=== PATIENT | female | born 1945 | race Caucasian/White ===

== ENCOUNTER → 2021-03-13 14:53 | Outpatient (CLI) | payer MEDICARE, SELFPAY ==
--- NOTE | 2021-03-13 14:57 | DI.ECHO.S_ITS ---
[facility] +---------+ : : [address] : [place] : : : : [id number] : : : : Phone: [phone]+ Echocardiogram Report + + :Name: LUCIANA MOYA Study Date: 03/13/2021 Height: 64 in : :[facility] ReadingLocation: Weight: 200 lb : : Gender: Female BSA: 2.0 m2 : :: 1945 Age: 76 yrs BP: 131/67 mmHg: :Reason For Study: HEART MURMUR : :Ordering Physician: DON, : :MIREYA Performed By: Isaura Shin : :Referring: MIREYA OCHOA : + + Interpretation Summary The left ventricle is normal in size and wall thickness. Left ventricular systolic function appears normal without focal wall motion abnormalities. The ejection fraction is estimated to be 55-60%. Diastolic parameters suggest a relaxation abnormality of the left ventricle, consistent with probable normal filling pressures. The right ventricle is normal in size, thickness and function. Pulmonary artery pressures cannot be estimated because of the lack of a measurable TR jet velocity but the IVC suggests a CVP of around 3 mmHg. The left atrium is mildly dilated. The right atrium is normal in size. There is no significant valvular heart disease. The ascending aorta is at the upper limits of normal in size. Procedure: A two-dimensional transthoracic echocardiogram with color flow and Doppler was performed. The study quality was technically adequate. There is no prior echocardiogram noted for this patient. The patient was in sinus rhythm with heart rates between 69-76 bpm during the exam. Left Ventricle: The left ventricle is normal in size and wall thickness. Left ventricular systolic function appears normal without focal wall motion abnormalities. The ejection fraction is estimated to be 55-60%. Diastolic parameters suggest a relaxation abnormality of the left ventricle, consistent with probable normal filling pressures. Right Ventricle: The right ventricle is normal in size, thickness and function. Atria: The left atrium is mildly dilated. The right atrium is normal in size. There is no Doppler evidence for an interatrial shunt. Mitral Valve: The mitral valve is normal in structure and function. There is no mitral regurgitation noted. Aortic Valve: The aortic valve opens well. There is no aortic valve stenosis. No aortic regurgitation is present. Tricuspid Valve: The tricuspid valve is normal in structure and function. There is trace tricuspid regurgitation. Pulmonary artery pressures cannot be estimated because of the lack of a measurable TR jet velocity but the IVC suggests a CVP of around 3 mmHg. Pulmonic Valve: The pulmonic valve is not well visualized. There is no pulmonic valvular regurgitation. There is no significant valvular heart disease. Great Vessels: The aortic root is normal size. The ascending aorta is at the upper limits of normal in size. The IVC is of normal diameter and collapses greater than 50% with a sniff. This suggests a low right atrial pressure of 3 mm Hg. Pericardium/ Pleura There is no pericardial effusion. There is no pleural effusion. MMode/2D Measurements & Calculations LVIDd: 4.8 cm LVOT diam: 2.2 cm LVIDs: 3.1 cm Ao root diam: 3.2 cm FS: 35.1 % asc Aorta Diam: 3.4 cm EPSS: 1.0 cm Ao Arch Diam (Prox Trans): 2.7 cm IVSd: 1.0 cm LVPWd: 0.70 cm LV lopez. diameter/BSA (cm/m^2): 2.5 LV sys. diameter/BSA (cm/m^2): 1.6 LA A2 area: 22.4 cm2 RA long axis: 4.6 cm LA A4 area: 17.8 cm2 RA area: 13.1 cm2 LA length (vol): 4.9 cm RA vol: 31.4 ml LA vol: 68.8 ml RA : 16.1 ml/m2 LA vol index: 35.2 ml/m2 IVC diam: 1.6 cm RVD1 (basal): 2.7 cm TAPSE: 1.6 cm Doppler Measurements & Calculations Ao V2 max: 129.4 cm/sec LVOT Max Krunal: 103.5 cm/sec Ao V2 mean: 78.6 cm/sec LV V1 max P.3 mmHg Ao max P.7 mmHg LV V1 VTI: 21.5 cm Ao mean P.0 mmHg REEMA(I,D): 3.1 cm2 Ao V2 VTI: 26.0 cm REEMA(V,D): 3.0 cm2 sev ratio: 0.83 REEMA indexed to BSA (cm^2/m^2): 1.6 MV E max krunal: 53.1 cm/sec PA pr(Accel): 46.5 mmHg MV A max krunal: 80.4 cm/sec MV E/A: 0.66 Med Peak E' Krunal: 3.9 cm/sec E/E' med: 13.5 Lat Peak E' Krunal: 5.9 cm/sec E/E' lat: 9.0 E/e' average: 11.2 MV dec time: 0.29 sec SV(OT): 80.8 ml Reading Physician:06:45 PM
== END ==
PROVIDERS: Referring Provider Family Medicine; Visit Provider Family Medicine
DX: R01.1 Cardiac murmur, unspecified (principal)
CPT/HCPCS: 93306

== ENCOUNTER 2021-05-11 13:31 | Inpatient (IN) | payer MEDICARE, SELFPAY ==
[2021-05-11] VITALS (16 sets, daily range): BP systolic 131–184; BP diastolic 60–98; PULSE 74–94; RESP 15–20; TEMP 36.4–37.2; O2SAT 93–98; BMI 32.5
[2021-05-11 14:17] LABS: Add Manual Diff / Slide Review NO; Basophils Absolute Auto 100 /uL (0-100); Basophils Percent Auto 0.4 % (0-2); Eosinophils Absolute Auto 100 /uL (0-450); Eosinophils Percent Auto 0.7 % (2-4); Hematocrit 46.3 % (36-46); Hemoglobin 15.2 g/dL (12.0-16.0); Lymphocytes Absolute Auto 1300 /uL (1100-4500); Lymphocytes Percent Auto 10.4 % (25-40); Mean Corpuscular HGB Conc 32.9 % (30-36); Mean Corpuscular Hemoglobin 30.7 PG (26-34); Mean Corpuscular Volume 93.4 fL (80-100); Monocytes Absolute Auto 800 /uL (0-900); Monocytes Percent Auto 6.6 % (3-14); Neutrophils Absolute Auto 10400 /uL (1500-7000); Neutrophils Percent Auto 81.9 % (50-75); Platelet Count 316 X10^3/uL (150-400); Red Blood Cell Count 4.96 X10^6/uL (4.0-5.2); Red Cell Distribution Width 14.1 % (11.6-14.8); White Blood Cell Count 12.8 X10^3/uL (4.5-11.0)
[2021-05-11] MEDS: ONDANSETRON 4 MG/2 ML INJ IV ×2 (14:17→21:37)
[2021-05-11] MEDS: MORPHINE 4 MG/ML INJ IV (14:19)
[2021-05-11] MEDS: SODIUM CHLORIDE 0.9% 1,000 ML 1000 ML IV (14:19)
[2021-05-11 14:31] LABS: Alanine Aminotransferase 21 IU/L (<35); Albumin 4.5 g/dL (3.5-5.0); Albumin Globulin Ratio 1.6 (1.0-2.8); Alkaline Phosphatase 81 U/L (38-126); Aspartate Aminotransferase 28 IU/L (14-36); BUN Creatinine Ratio 16.7 (6-22); Bilirubin Total 0.8 mg/dL (0.2-1.3); Blood Urea Nitrogen 14 mg/dL (7-17); Calcium 10.2 mg/dL (8.4-10.2); Carbon Dioxide 26 mmol/L (22-32); Chloride 105 mmol/L (98-107); Estimated Glomerular Filt Rate > 60.0 mL/min (>60); Globulin 2.8 g/dL (1.7-4.1); Glucose 143 mg/dL (80-110); HEMOLYSIS < 15 (0-50); Lipase 98 U/L (23-300); Potassium 4.3 mmol/L (3.4-5.1); Sodium 140 mmol/L (137-145); Total Protein 7.3 g/dL (6.3-8.2)
--- NOTE | 2021-05-11 14:31 | ED_ITS ---
HPI - General Adult General Chief complaint: Abdominal Pain Stated complaint: Vomiting Non Stop, Poss Pancreatitis Time Seen by Provider: 05/11/21 14:12 Source: patient Mode of arrival: Family Vehicle Limitations: no limitations History of Present Illness HPI narrative: Patient is a 76-year-old female who is here for evaluation of multiple episodes of vomiting and abdominal discomfort. She has had history of pancreatitis in the past and states this feels similar to that episode. She did have a bowel movement yesterday. Everything she has tried to eat today she has vomited. No fevers. Also feels abdominal distention. Has had a hysterectomy otherwise no abdominal surgeries. Was also recently diagnosed with the urinary tract infection and has only taken a couple doses of antibiotics for this and is seem to be after the antibiotics with her symptoms started. Related Data Home Medications Medication Instructions Recorded Confirmed amlodipine 5 mg tablet (Norvasc) 5 mg PO QDAY #0 06/29/11 diclofenac sodium 50 mg 50 mg PO AMCC #0 06/29/11 tablet,delayed release metoprolol tartrate 25 mg tablet 25 mg PO BID #0 06/29/11 Allergies Allergy/AdvReac Type Severity Reaction Status Date / Time Penicillins Allergy Severe Rash Verified 05/11/21 13:44 Sulfa (Sulfonamide Allergy Severe Rash Verified 05/11/21 13:44 Antibiotics) Review of Systems Constitutional Constitutional: Denies fever(s) Cardiovascular Cardiovascular: Denies chest pain and Denies dyspnea Respiratory Respiratory: Denies dyspnea Gastrointestinal Gastrointestinal: Reports as per HPI, Reports bloating, Reports cramping, Reports nausea and Reports vomiting Genitourinary Genitourinary: Reports system reviewed and no additional complaints, except as documented Musculoskeletal Musculoskeletal: Reports system reviewed and no additional complaints, except as documented Integumentary/Breasts Skin/Breast: Reports system reviewed and no additional complaints, except as documented Neurologic Neurologic: Reports system reviewed and no additional complaints, except as documented Psychiatric Psychiatric: Reports system reviewed and no additional complaints, except as documented Hematologic/Lymphatic On Anticoagulants: No Allergic/Immunologic Allergic/Immunologic: Reports system reviewed and no additional complaints, except as documented Patient History Medical History Pancreatitis Surgical History History of hysterectomy Social History (Reviewed 07/16/21 @ 19:04 by RIKY Amaya Smoking Status: Never smoker Smoking Status: Never smoker alcohol intake frequency: holidays/special occasions only Substance Use Type: does not use Exam Initial Vital Signs Initial Vital Signs: Vital Signs Temperature 97.5 F L 05/11/21 13:37 Pulse Rate 94 H 05/11/21 13:37 Respiratory Rate 18 05/11/21 13:37 Blood Pressure 131/96 H 05/11/21 13:37 Pulse Oximetry 96 05/11/21 13:37 Const General: cooperative, healthy appearing and comfortable HENNC Head: normal to inspection Eyes General: appearance normal, both eyes and all related structures Resp Effort & Inspection: normal respiratory effort Auscultation: clear to auscultation bilaterally Cardio Rate: regular rate Rhythm: regular rhythm GI Inspection: normal to inspection Palpation: firm and tender Percussion: normal to percussion Skin General: no rashes or lesions noted Neuro General: patient alert, patient awake, patient oriented x3 and moves all extremities Extrem General: normal to inspection and capillary refill normal Psych Appearance: grossly normal and well kempt Course Orders Ordered: ED Orders 05/11/21 13:45 EKG-12 Lead Stat 05/11/21 14:14 Complete Blood Count AUTO DIFF Stat Comprehensive Metabolic Panel Stat Lipase Stat 05/11/21 15:03 CT abdomen pelvis w con Stat 05/11/21 16:00 COVID19 - ADMIT (SOIL CONSERVATION AIDE swab/PCR) Stat 05/11/21 16:09 Consult to General Surgery Stat 05/11/21 17:05 Consult to Physician Urgent Bupropion HCl (Bupropion Xl 150 Mg Tab) 300 mg PO DAILY KATIE Doxepin HCl (Doxepin 10 Mg Capsule) 20 mg PO BEDTIME KATIE Gabapentin (Gabapentin 300 Mg Capsule) 300 mg PO TID KAITE Sodium Chloride (Normal Saline 0.9%) 1,000 mls @ 125 mls/hr IV CONT KATIE Last Admin: 05/11/21 16:10 Dose: 125 mls/hr Documented by: ANUSHKAYERS Sodium Chloride (Normal Saline 0.9%) 1,000 mls @ 125 mls/hr IV CONT KATIE Last Admin: 05/11/21 17:57 Dose: Not Given Documented by: KBRYERS Sodium Chloride (Normal Saline 0.45%) 1,000 mls @ 125 mls/hr IV CONT KATIE Morphine Sulfate (Morphine 2 Mg/Ml Inj) 4 mg IV Q4HR PRN PRN Reason: pain Morphine Sulfate (Morphine 2 Mg/Ml Inj) 2 mg IV Q4HR PRN PRN Reason: Pain, Moderate (4-6) Naloxone HCl (Naloxone 0.4 Mg/Ml Vial) 0.2 mg IV Q2MIN PRN PRN Reason: Opiate Reversal Ondansetron HCl (Ondansetron 4 Mg/2 Ml Inj) 4 mg IV Q4HR PRN PRN Reason: Nausea And Vomiting Pantoprazole Sodium (Pantoprazole 40 Mg Vial) 40 mg IV DAILY KATIE Discontinued Medications Sodium Chloride (Normal Saline 0.9%) 1,000 mls @ 1,000 mls/hr IV BOLUS ONE Stop: 05/11/21 15:17 Last Infusion: 05/11/21 15:27 Dose: 0 mls/hr Documented by: Admin: 05/11/21 14:19 Dose: 1,000 mls/hr Documented by: KATRIN Morphine Sulfate (Morphine 4 Mg/Ml Inj) 4 mg IV NOW ONE Stop: 05/11/21 14:13 Last Admin: 05/11/21 14:19 Dose: 4 mg Documented by: KATRIN Ondansetron HCl (Ondansetron 4 Mg/2 Ml Inj) 4 mg IV NOW ONE Stop: 05/11/21 13:50 Last Admin: 05/11/21 14:17 Dose: 4 mg Documented by: KATRIN Vital Signs Vital signs: Vital Signs - 8 hr 05/11/21 13:37 05/11/21 14:40 05/11/21 14:49 Temperature 97.5 F L Pulse Rate 94 H 82 79 Respiratory Rate 18 19 Blood Pressure 131/96 H 148/69 H Pulse Oximetry 96 96 94 05/11/21 15:00 05/11/21 15:30 05/11/21 16:00 Temperature Pulse Rate 74 81 81 Respiratory Rate 17 17 18 Blood Pressure 139/65 174/73 H Pulse Oximetry 98 97 96 05/11/21 16:14 05/11/21 16:30 05/11/21 16:38 Temperature Pulse Rate 83 88 92 H Respiratory Rate 17 17 Blood Pressure 184/74 H 165/79 H Pulse Oximetry 93 95 98 05/11/21 17:00 05/11/21 17:30 05/11/21 18:00 Temperature Pulse Rate 85 86 83 Respiratory Rate 15 20 17 Blood Pressure 171/81 H 172/78 H 152/81 H Pulse Oximetry 96 96 98 Medical Decision Making Lab Data Lab results reviewed: Yes I reviewed the patient's lab results. Result diagrams: 05/11/21 14:14 05/11/21 14:14 Labs: Lab Results 05/11/21 05/11/21 05/11/21 Range/Units 14:14 14:14 16:00 WBC 12.8 H (4.5-11.0) X10^3/uL RBC 4.96 (4.0-5.2) X10^6/uL Hgb 15.2 (12.0-16.0) g/dL Hct 46.3 H (36-46) % MCV 93.4 (80-100) fL MCH 30.7 (26-34) PG MCHC 32.9 (30-36) % RDW 14.1 (11.6-14.8) % Plt Count 316 (150-400) X10^3/uL Neut % (Auto) 81.9 H (50-75) % Lymph % (Auto) 10.4 L (25-40) % [place] % (Auto) 6.6 (3-14) % Eos % (Auto) 0.7 L (2-4) % Baso % (Auto) 0.4 (0-2) % Neut # (Auto) 56867 H (6519-7551) /uL Lymph # (Auto) 1300 (4941-8872) /uL [place] # (Auto) 800 (0-900) /uL Eos # (Auto) 100 (0-450) /uL Baso # (Auto) 100 (0-100) /uL Sodium 140 (137-145) mmol/L Potassium 4.3 (3.4-5.1) mmol/L Chloride 105 (98-107) mmol/L Carbon Dioxide 26 (22-32) mmol/L BUN 14 (7-17) mg/dL Creatinine 0.84 (0.52-1.04) mg/dL Estimated GFR > 60.0 (>60) mL/min BUN/Creatinine Ratio 16.7 (6-22) Glucose 143 H (80-110) mg/dL Calcium 10.2 (8.4-10.2) mg/dL Total Bilirubin 0.8 (0.2-1.3) mg/dL AST 28 (14-36) IU/L ALT 21 (<35) IU/L Alkaline Phosphatase 81 (38-126) U/L Total Protein 7.3 (6.3-8.2) g/dL Albumin 4.5 (3.5-5.0) g/dL Globulin 2.8 (1.7-4.1) g/dL Albumin/Globulin Ratio 1.6 (1.0-2.8) Lipase 98 (23-300) U/L SARS-CoV-2 (PCR) Negative (Negative) Urine Dip Bedside Urine Glucose Negative Bedside Urine Bilirubin - Negative Bedside Urine Ketone - Negative Urine Specific [place] 1.005 Bedside Urine Occult Blood - Negative Bedside Urine pH 6 Bedside Urine Protein +/- 15 Bedside Urine Urobilinogen - Negative Bedside Urine Nitrite - Negative Bedside Urine Leukocytes - Negative Esterase Point of care testing: Urine Dip Bedside Urine Glucose Negative Bedside Urine Bilirubin - Negative Bedside Urine Ketone - Negative Urine Specific [place] 1.005 Bedside Urine Occult Blood - Negative Bedside Urine pH 6 Bedside Urine Protein +/- 15 Bedside Urine Urobilinogen - Negative Bedside Urine Nitrite - Negative Bedside Urine Leukocytes - Negative Esterase Imaging Data CT scan - abdomen/pelvis: Radiologist's Impression: [address] [id number] Scan ReportSigned Patient: Trudy Snyder LMR#: [id number]: 6Acct:[id number]/Sex: 76 / FDate of Service: 05/11/21Loc: EDAccession Number: [id number] Procedure: CT abdomen pelvis w con Ordering Provider: Fran Lobo D.O. PROCEDURE: CT ABDOMEN PELVIS W CON INDICATIONS: Generalized abdominal pain TECHNIQUE: After the administration of intravenous contrast, axial sections acquired from the lung bases to the pubic symphysis. Coronal and sagittal reformats were performed. For radiation dose reduction, the following was used: automated exposure control, adjustment of mA and/or kV according to patient size. COMPARISON: None. FINDINGS: Image quality: Excellent. Lung bases: Unremarkable. Heart: No significant findings. ABDOMEN: Liver: The liver is enlarged with steatosis. Gallbladder: Unremarkable. Biliary ducts: Unremarkable. Pancreas: Unremarkable. Spleen: There is a calcified low-attenuation mass within the superior spleen measuring approximately 3.4 x 3.3 cm. Adrenal Glands: Unremarkable. Kidneys and Ureters: Right simple renal cyst is present measuring 15 mm. Stomach and Bowel: There are moderately dilated fluid-filled loops of small bowel. Transition point is not clearly identified but suspected to be in the right lower quadrant. Most prominent loop of bowel is dilated measuring 4.2 cm in AP dimension. Peritoneum: No abnormal intraperitoneal fluid. No free air. Ventral Wall: No hernias. Abdominal Nodes: No retroperitoneal or mesenteric adenopathy by size criteria. Vessels: Aorta and inferior vena cava are normal in size. PELVIS: Pelvic Organs: Unremarkable. Bladder: Unremarkable. Pelvic Nodes: No enlarged lymph nodes. Miscellaneous: No hernias are seen. Bilateral breast implants are noted including calcified implant on the left. Bones: Lower lumbar fusion is present. Lucencies are present within the posterior right iliac bone having an appearance of prior surgical intervention. Clinical correlation is recommended. IMPRESSION: 1. Dilated fluid-filled loops of small bowel as described above most consistent with partial small bowel obstruction. 2. Calcified splenic mass as above. This could represent hemangioma or lesion of prior infection or inflammation. It is overall nonspecific and no priors are av ailable for comparison. Dictated by: Sandra Lee M.D. on 05/11/2021 at 15:37 Approved by: Sandra Lee M.D. on 05/11/2021 at 15:47 MDM Narrative Medical decision making narrative: Patient does have diffuse abdominal ten derness with distension. Lipase unremarkable. LFTs unremarkable. CT scan shows findings consistent with partial small bowel obstruction. I did discuss the case with Dr. Hurst on-call for General surgery who agrees to see the patient after she is admitted asked that she be admitted by her primary provider. I then discussed the case with Dr. Rocha who is her primary doctor who will admit for further evaluation treatment. Her pain and nausea does seem to be controlled with medications we will hold on an NG tube for now. I did discuss the findings of the CT scan with the patient and family at bedside. They expressed understanding agreement this plan. Discharge Plan Departure Patient Disposition: Admitted As Inpatient Clinical Impression: Small bowel obstruction Admit Date/Time: 05/11/21 18:00 Admit Provider: Batsheva Rocha
--- NOTE | 2021-05-11 15:03 | DI.CT.S_ITS ---
PROCEDURE: CT ABDOMEN PELVIS W CON INDICATIONS: Generalized abdominal pain TECHNIQUE: After the administration of intravenous contrast, axial sections acquired from the lung bases to the pubic symphysis. Coronal and sagittal reformats were performed. For radiation dose reduction, the following was used: automated exposure control, adjustment of mA and/or kV according to patient size. COMPARISON: None. FINDINGS: Image quality: Excellent. Lung bases: Unremarkable. Heart: No significant findings. ABDOMEN: Liver: The liver is enlarged with steatosis. Gallbladder: Unremarkable. Biliary ducts: Unremarkable. Pancreas: Unremarkable. Spleen: There is a calcified low-attenuation mass within the superior spleen measuring approximately 3.4 x 3.3 cm. Adrenal Glands: Unremarkable. Kidneys and Ureters: Right simple renal cyst is present measuring 15 mm. Stomach and Bowel: There are moderately dilated fluid-filled loops of small bowel. Transition point is not clearly identified but suspected to be in the right lower quadrant. Most prominent loop of bowel is dilated measuring 4.2 cm in AP dimension. Peritoneum: No abnormal intraperitoneal fluid. No free air. Ventral Wall: No hernias. Abdominal Nodes: No retroperitoneal or mesenteric adenopathy by size criteria. Vessels: Aorta and inferior vena cava are normal in size. PELVIS: Pelvic Organs: Unremarkable. Bladder: Unremarkable. Pelvic Nodes: No enlarged lymph nodes. Miscellaneous: No hernias are seen. Bilateral breast implants are noted including calcified implant on the left. Bones: Lower lumbar fusion is present. Lucencies are present within the posterior right iliac bone having an appearance of prior surgical intervention. Clinical correlation is recommended. IMPRESSION: 1. Dilated fluid-filled loops of small bowel as described above most consistent with partial small bowel obstruction. 2. Calcified splenic mass as above. This could represent hemangioma or lesion of prior infection or inflammation. It is overall nonspecific and no priors are available for comparison. Dictated by: Sandra Lee M.D. on 05/11/2021 at 15:37 Approved by: Sandra Lee M.D. on 05/11/2021 at 15:47
[2021-05-11] MEDS: SODIUM CHLORIDE 0.9% 1,000 ML 125 ML IV (16:10)
[2021-05-11 17:21] LABS: COVID19 - ADMIT (NP swab/PCR) Negative (Negative)
--- NOTE | 2021-05-11 18:41 | P.HP_ITS ---
History of Present Illness History of Present Illness Date Patient Seen: 05/11/21 Time Patient Seen: 18:42 Date of Onset of Symptoms: 05/10/21 Chief complaint: Vomiting Non Stop, Poss Pancreatitis Narrative: This pleasant 75-year-old female who is a relatively new patient to me presents to the emergency department with complaints of severe abdominal pain and vomiting. Her symptoms started a couple days ago when she developed increasing nausea and abdominal pain. She was seen in the clinic yesterday and concern for possible urinary tract infection. She was started on Macrobid she took 2 doses. She then developed vomiting today she was not sure if it was related to the antibiotics or the underlying process so we directed her to go to the ER for evaluation. In the ER was discovered that she had a bowel obstruction. She was admitted for the same. Patient last ate yesterday. Her last bowel movement was yesterday in her bowels have been normal. She has not had any constipation or diarrhea. However the patient has had intermittent nausea over the last 6 weeks and is in fact lost 10 lb of weight. She has not been trying to lose weight but she has not had as much of appetite. It feels very similar to when she had pancreatiti in the past. The pancreatitis was related to defer medication she was on Mon included the lisinopril. She denies any other urinary symptoms or blood in her urine or blood in her stool or early satiety or significant reflux Past medical history: 1. Hypertension 2. Depression 3. Hyperlipidemia 4. Hypertension 5. GERD 6. Degenerative joint disease of her left knee 7. Decreased hearing bilaterally 8. History of a heart murmur but no evidence of valvular abnormality on recent echo 9. Cervical spinal stenosis 10. History of subdural hematoma 11. History of pancreatitis as above 12. Family history of diabetes Medications Telmisartan 80 mg daily Amlodipine 10 mg daily Zofran on as needed Potassium chloride ER 20 mEq a day Furosemide 20 mg daily Gabapentin 300 mg 3 times a day for chronic pain And omeprazole 40 mg daily Bupropion ER XL 300 mg daily Doxepin 20 mg at bedtime Dicyclomine 10 mg as needed Fluticasone 2 squirts each nostril once daily Allergies: Sulfa Penicillin Lisinopril caused pancreatitis Most [place] cause sweating Past surgical history 2006 she had a subdural hematoma status post craniotomy Lumbar fusion Lumbar fusion in 2004 Right total knee replacement Family history: Father had diabetes was a smoker and of renal cancer Mother had hypertension depression substance abuse of a bowel blockage at age 74 and had a abdominal aortic aneurysm Patient has a brother with Diabetes and memory issues Sister was killed at age 20 I gunshot Daughter with Rett syndrome Patient History Family & Social History Social History: Patient is a . She recently moved from [facility] where she lives to [place] to be closer to her son and his family. Safety & Behavioral: Feels Safe in Current Yes Environment Been Physically Hurt or No Threatened By a Person Tobacco & Substance use: Smoking Status Never smoker alcohol intake frequency holiday/special occasion Substance Use Type does not use Meds Home Medications and Allergies Home Medications Medication Instructions Recorded Confirmed Type amlodipine 5 mg tablet (Norvasc) 5 mg PO QDAY #0 06/29/11 History diclofenac sodium 50 mg 50 mg PO AMCC #0 06/29/11 History tablet,delayed release metoprolol tartrate 25 mg tablet 25 mg PO BID #0 06/29/11 History Allergies Allergy/AdvReac Type Severity Reaction Status Date / Time Penicillins Allergy Severe Rash Verified 05/11/21 13:44 Sulfa (Sulfonamide Allergy Severe Rash Verified 05/11/21 13:44 Antibiotics) Review of Systems Review of Systems Narrative: Bowel movements have been normal. Her last bowel movement was yesterday. There has been no blood in her stool. No mucus. No diarrhea. Patient does have a history of irritable bowel syndrome but she is not a current symptoms. No chest pain or shortness of breath She has had nausea since her last visit with me in the end of February intermittently and has lost 10 lb without trying just because she has not had much of an appetite. She has not had vomiting No fever or chills No change in musculoskeletal pain. No change in medications Exam Vital Signs (past 8 hours): - 05/11/21 13:37 05/11/21 14:40 05/11/21 14:49 Temperature 97.5 F L Pulse Rate 94 H 82 79 Respiratory Rate 18 19 Blood Pressure 131/96 H 148/69 H Pulse Oximetry 96 96 94 05/11/21 15:00 05/11/21 15:30 05/11/21 16:00 Temperature Pulse Rate 74 81 81 Respiratory Rate 17 17 18 Blood Pressure 139/65 174/73 H Pulse Oximetry 98 97 96 05/11/21 16:14 05/11/21 16:30 05/11/21 16:38 Temperature Pulse Rate 83 88 92 H Respiratory Rate 17 17 Blood Pressure 184/74 H 165/79 H Pulse Oximetry 93 95 98 05/11/21 17:00 05/11/21 17:30 05/11/21 18:00 Temperature Pulse Rate 85 86 83 Respiratory Rate 15 20 17 Blood Pressure 171/81 H 172/78 H 152/81 H Pulse Oximetry 96 96 98 Oxygen Delivery Method Room Air Narrative Exam Narrative: Patient is alert oriented x3, well groomed, appears younger than her stated age, in no apparent distress HEENT is unremarkable. No mucosal lesions the mucous membranes are moist and pink Neck is supple without adenopathy or thyromegaly Chest: Clear to auscultation without wheezes rhonchi or crackles Cor: Regular rate and rhythm without murmur Abdomen: Patient has a well-healed hysterectomy scar. She has positive bowel sounds but they are diminished. She appears mildly distended. She is diffusely tender left upper quadrant left lower quadrant and right lower quadrant. There is no guarding. There is no rebound. There is no discernible hepatosplenomegaly Extremities: No edema, pulses intact Neurologic exam is nonfocal Objective Labs Result Diagrams: 05/11/21 14:14 05/11/21 14:14 Labs: Laboratory Results - last 24 hr 05/11/21 05/11/21 05/11/21 14:14 14:14 16:00 WBC 12.8 H RBC 4.96 Hgb 15.2 Hct 46.3 H MCV 93.4 MCH 30.7 MCHC 32.9 RDW 14.1 Plt Count 316 Neut % (Auto) 81.9 H Lymph % (Auto) 10.4 L [place] % (Auto) 6.6 Eos % (Auto) 0.7 L Baso % (Auto) 0.4 Neut # (Auto) 26026 H Lymph # (Auto) 1300 [place] # (Auto) 800 Eos # (Auto) 100 Baso # (Auto) 100 Sodium 140 Potassium 4.3 Chloride 105 Carbon Dioxide 26 BUN 14 Creatinine 0.84 Estimated GFR > 60.0 BUN/Creatinine Ratio 16.7 Glucose 143 H Calcium 10.2 Total Bilirubin 0.8 AST 28 ALT 21 Alkaline Phosphatase 81 Total Protein 7.3 Albumin 4.5 Globulin 2.8 Albumin/Globulin Ratio 1.6 Lipase 98 SARS-CoV-2 (PCR) Negative Assessment & Plan Assessment & Plan narrative: Very pleasant 75-year-old female with abdominal pain, nausea, vomiting with a bowel obstruction Plan: Admit to the hospital for further treatment and diagnostic workup Patient will be NPO except for meds with sips Dr. Hurst has been consulted Will provide IV fluids Will provide IV pain medications and anti nausea Will re-evaluate in the a.m. Unclear what the 6 weeks of nausea over time have been. 2. Hypertension Plan: Continue amlodipine and telmisartan 3. Chronic pain Plan: Continue gabapentin 300 mg t.i.d. 4. Depression without acute issues Plan: Continue on bupropion XL 300 mg daily and doxepin 20 mg at bedtime and Discussed code status with patient patient clearly does not want to be resuscitated if she if she has sudden event necessitating CPR or intubation. She has long not want to be ventilated. We will sign a pulse form. 65 minutes was spent with patient examining her and discussing with Dr. scanlon reviewing the workup in the ER in consulting with nursing as well as Dr. Hurst and formulating a plan and documentation
[2021-05-11] MEDS: SODIUM CHLORIDE 0.45% 1,000 ML 125 ML IV (20:46)
[2021-05-11] MEDS: PANTOPRAZOLE 40 MG VIAL IV (21:47)
[2021-05-11] MEDS: AMLODIPINE 5 MG TABLET 10 MG PO (22:11)
[2021-05-11] MEDS: DOXEPIN 10 MG CAPSULE 20 MG PO (22:11)
[2021-05-11] MEDS: GABAPENTIN 300 MG CAPSULE PO (22:11)
[2021-05-11] MEDS: LORazepam 2 MG/ML INJ 0.5 MG IV (23:50)
[2021-05-12] VITALS: O2SAT 94
--- NOTE | 2021-05-12 | DI.RAD.S_ITS ---
PROCEDURE: XR GASTROGRAFIN CHALLENGE COMPARISON: None. INDICATIONS: sbo FINDINGS: Oral Gastrografin was administered, and a 4 hour radiographs of the abdomen is obtained. There is dilated small bowel measuring up to 4 cm, and there is contrast within the large bowel left colon and rectum. Lower lumbar spine instrumentation noted. Underlying osseous structures unremarkable. IMPRESSION: Enteric contrast in the colon and dilated small bowel. Findings most consistent with adynamic ileus. Dictated by: Hugo Plunkett M.D. on 05/12/2021 at 15:17 Approved by: Hugo Plunkett M.D. on 05/12/2021 at 15:20
[2021-05-12 03:07] VITALS: TEMP 37.6
[2021-05-12] MEDS: SODIUM CHLORIDE 0.45% 1,000 ML 125 ML IV ×3 (04:37→21:34)
[2021-05-12 06:00] LABS: Add Manual Diff / Slide Review NO; Basophils Absolute Auto 100 /uL (0-100); Basophils Percent Auto 0.9 % (0-2); Eosinophils Absolute Auto 100 /uL (0-450); Eosinophils Percent Auto 1.2 % (2-4); Hematocrit 40.9 % (36-46); Hemoglobin 13.4 g/dL (12.0-16.0); Lymphocytes Absolute Auto 2000 /uL (1100-4500); Lymphocytes Percent Auto 22.9 % (25-40); Mean Corpuscular HGB Conc 32.9 % (30-36); Mean Corpuscular Hemoglobin 30.9 PG (26-34); Monocytes Absolute Auto 1000 /uL (0-900); Monocytes Percent Auto 11.3 % (3-14); Neutrophils Absolute Auto 5500 /uL (1500-7000); Neutrophils Percent Auto 63.7 % (50-75); Platelet Count 256 X10^3/uL (150-400); Red Blood Cell Count 4.35 X10^6/uL (4.0-5.2); Red Cell Distribution Width 14.1 % (11.6-14.8); White Blood Cell Count 8.6 X10^3/uL (4.5-11.0)
[2021-05-12 06:09] LABS: Alanine Aminotransferase 16 IU/L (<35); Albumin 3.3 g/dL (3.5-5.0); Albumin Globulin Ratio 1.3 (1.0-2.8); Alkaline Phosphatase 59 U/L (38-126); Amylase 111 U/L (30-110); Aspartate Aminotransferase 21 IU/L (14-36); BUN Creatinine Ratio 18.9 (6-22); Bilirubin Total 0.6 mg/dL (0.2-1.3); Blood Urea Nitrogen 14 mg/dL (7-17); Calcium 8.7 mg/dL (8.4-10.2); Carbon Dioxide 24 mmol/L (22-32); Chloride 107 mmol/L (98-107); Estimated Glomerular Filt Rate > 60.0 mL/min (>60); Globulin 2.5 g/dL (1.7-4.1); Glucose 90 mg/dL (80-110); HEMOLYSIS < 15 (0-50); Lipase 70 U/L (23-300); Potassium 3.9 mmol/L (3.4-5.1); Sodium 138 mmol/L (137-145); Total Protein 5.8 g/dL (6.3-8.2)
[2021-05-12 07:30] VITALS: BP 129/67; PULSE 56; RESP 16; TEMP 36.5; O2SAT 96
[2021-05-12] MEDS: PANTOPRAZOLE 40 MG VIAL IV (11:00)
[2021-05-12] MEDS: buPROPion XL 150 MG TAB 300 MG PO (11:00)
--- NOTE | 2021-05-12 11:21 | P.CONS_ITS ---
History of Present Illness Consult details Date Patient Seen: 05/12/21 Time Patient Seen: 11:21 Chief complaint: Vomiting Non Stop, Poss Pancreatitis Reason for consult: partial SBO Requesting provider: Fran Lobo Narrative: abdominal pain and distention that felt like her previous pancreatitis. No emesis, no constipation, no fever. Had BM yesterday and still passes gas. Pain was sharp and mid epigastric. Better with walking and hydration. CT scan that I reviewed personally shows dilated mid small bowel w/o transition and an interesting calcified mass in the spleen of no relevance to current issue. She has had abdominal surgery in the past. Meds Home Medications and Allergies Home Medications Medication Instructions Recorded Confirmed Type amlodipine 5 mg tablet (Norvasc) 10 mg PO QDAY #0 06/29/11 05/11/21 History albuterol 90 mcg/actuation aerosol 90 mcg INHALATION PRN PRN 05/11/21 05/11/21 History inhaler bupropion HCl 300 mg 24 hr tablet, 300 mg PO DAILY 05/11/21 05/11/21 History extended release cholecalciferol (vitamin D3) 25 25 mcg PO DAILY 05/11/21 05/11/21 History mcg (1,000 unit) tablet (Vitamin D3) dicyclomine 10 mg capsule 10 mg PO PRN PRN 05/11/21 05/11/21 History doxepin 10 mg capsule 20 mg PO BEDTIME 05/11/21 05/11/21 History furosemide 20 mg tablet 20 mg PO DAILY 05/11/21 05/11/21 History gabapentin 300 mg capsule 300 mg PO TID 05/11/21 05/11/21 History omeprazole 40 mg capsule,delayed 40 mg PO DAILY 05/11/21 05/11/21 History release potassium chloride 20 mEq 20 meq PO DAILY 05/11/21 05/11/21 History tablet,extended release telmisartan 80 mg tablet 80 mg PO BEDTIME 05/11/21 05/11/21 History Allergies Allergy/AdvReac Type Severity Reaction Status Date / Time Penicillins Allergy Severe Rash Verified 05/11/21 13:44 Sulfa (Sulfonamide Allergy Severe Rash Verified 05/11/21 13:44 Antibiotics) Review of Systems Review of Systems ROS: Yes All systems reviewed with the patient and are negative except as otherwise documented Exam Vital Signs (past 8 hours): - 05/12/21 07:30 Temperature 97.7 F Pulse Rate 56 L Respiratory Rate 16 Blood Pressure 129/67 Pulse Oximetry 96 Oxygen Delivery Method Room Air Oxygen Flow Rate 0 Const General: cooperative and healthy appearing Nutritional Appearance: obese Orientation: alert HENMI Head: normal to inspection, normocephalic and atraumatic Ears: hearing grossly normal bilaterally Nose: external nose normal Face and sinus: normal facial exam Eyes Sclera: sclerae normal Neck Neck: normal visual inspection and trachea midline Chest Chest: normal inspection of the chest Resp Effort & Inspection: normal respiratory effort and able to speak in complete sentences Cardio Rate: regular rate Rhythm: regular rhythm GI Inspection: normal to inspection Palpation: soft Other: no focal tenderness Skin General: no rashes or lesions noted Neuro General: patient alert and patient oriented x3 Cognition: normal cognition Extrem General: normal to inspection and full ROM Psych Appearance: grossly normal and well kempt Attitude: cooperative Judgment: judgment good Objective Labs Result Diagrams: 05/12/21 05:15 05/12/21 05:15 Labs: Laboratory Results - last 24 hr 05/11/21 05/11/21 05/11/21 14:14 14:14 16:00 WBC 12.8 H RBC 4.96 Hgb 15.2 Hct 46.3 H MCV 93.4 MCH 30.7 MCHC 32.9 RDW 14.1 Plt Count 316 Neut % (Auto) 81.9 H Lymph % (Auto) 10.4 L [place] % (Auto) 6.6 Eos % (Auto) 0.7 L Baso % (Auto) 0.4 Neut # (Auto) 89693 H Lymph # (Auto) 1300 [place] # (Auto) 800 Eos # (Auto) 100 Baso # (Auto) 100 Sodium 140 Potassium 4.3 Chloride 105 Carbon Dioxide 26 BUN 14 Creatinine 0.84 Estimated GFR > 60.0 BUN/Creatinine Ratio 16.7 Glucose 143 H Calcium 10.2 Total Bilirubin 0.8 AST 28 ALT 21 Alkaline Phosphatase 81 Total Protein 7.3 Albumin 4.5 Globulin 2.8 Albumin/Globulin Ratio 1.6 Amylase Lipase 98 SARS-CoV-2 (PCR) Negative 05/12/21 05/12/21 05:15 05:15 WBC 8.6 RBC 4.35 Hgb 13.4 Hct 40.9 MCV 94.0 MCH 30.9 MCHC 32.9 RDW 14.1 Plt Count 256 Neut % (Auto) 63.7 Lymph % (Auto) 22.9 L [place] % (Auto) 11.3 Eos % (Auto) 1.2 L Baso % (Auto) 0.9 Neut # (Auto) 5500 Lymph # (Auto) 2000 [place] # (Auto) 1000 H Eos # (Auto) 100 Baso # (Auto) 100 Sodium 138 Potassium 3.9 Chloride 107 Carbon Dioxide 24 BUN 14 Creatinine 0.74 Estimated GFR > 60.0 BUN/Creatinine Ratio 18.9 Glucose 90 Calcium 8.7 Total Bilirubin 0.6 AST 21 ALT 16 Alkaline Phosphatase 59 Total Protein 5.8 L Albumin 3.3 L Globulin 2.5 Albumin/Globulin Ratio 1.3 Amylase 111 H Lipase 70 SARS-CoV-2 (PCR) Assessment & Plan Assessment & Plan narrative: Still appears partial SBO, no transition point for adhesive disease. Gastrograffin Challenge today due to persistent symptoms. COVID-19 COVID-19 status: Negative Time Spent With Patient Time with patient: 25 - 35 minutes
--- NOTE | 2021-05-12 11:53 | CM.DANOTE ---
DCP: Case received, EMR reviewed and met with patient. Introduced self and role. Was able to obtain information from patient regarding her baseline activity status prior to hospitalization. DCP assessment completed with information currently available. Patient i a 76 year old female who admitted yesterday afternoon to the care of the hospitalist team. PCP: Dr. Rocha. Payer: confirmed: [employer]. Patient came to the hospital via private vehicle secondary to having vomiting, as well as abdominal pain. Patient had also noted some loose stools. She holds current diagnosis of bowel obstruction, and will be having a surgical consult today. Patient also indicated, she has history of IBS. Met with patient in her room. She was sitting up in her chair, currently NPO. She is pleasant, alert and oriented. Confirmed with her that she resides alone here in [place]. She has a son, Alfred, who also lives in the area. Patient moved here from [place] approximately a year ago to be closer to her family. She is independent at her baseline, and drives. P: DCP to continue to follow. She will be having a surgical consult today. Patient should be able to return home when she is deemed medically stable. Celi Benavides RN/Embedded Nurse
[2021-05-12 15:00] VITALS: O2SAT 97
--- NOTE | 2021-05-12 15:02 | P.PN_ITS ---
Subjective Subjective Date Patient Seen: 05/12/21 Time Patient Seen: 15:02 Interval history: Patient is feeling much better today. She is not having nausea and not having vomiting. 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 Dr. Hurst met with her this morning and ordered Gastrografin which she received at about 11 30 and she just recently passed several small pellet size hard stool balls. Otherwise she denies any complaints. Review of system is negative No chest pain or shortness of breath No fever chills or rash No headache Exam Vital Signs (past 8 hours): - 05/12/21 07:30 Temperature 97.7 F Pulse Rate 56 L Respiratory Rate 16 Blood Pressure 129/67 Pulse Oximetry 96 Oxygen Delivery Method Room Air Oxygen Flow Rate 0 Narrative Exam Narrative: Afebrile vital signs are stable HEENT is unremarkable Neck is supple without adenopathy Chest: Clear to auscultation without wheezes rhonchi or crackles Cor: Regular rate and rhythm without murmur Abdomen: Positive bowel sounds. Increased from yesterday. Mild tenderness left upper quadrant but no guarding or rebound. No evidence of acute abdomen Extremities: No edema Pulses intact Neurologic exam nonfocal Objective Labs Result Diagrams: 05/12/21 05:15 05/12/21 05:15 Labs: Laboratory Results - last 24 hr 05/11/21 05/12/21 05/12/21 16:00 05:15 05:15 WBC 8.6 RBC 4.35 Hgb 13.4 Hct 40.9 MCV 94.0 MCH 30.9 MCHC 32.9 RDW 14.1 Plt Count 256 Neut % (Auto) 63.7 Lymph % (Auto) 22.9 L [place] % (Auto) 11.3 Eos % (Auto) 1.2 L Baso % (Auto) 0.9 Neut # (Auto) 5500 Lymph # (Auto) 2000 [place] # (Auto) 1000 H Eos # (Auto) 100 Baso # (Auto) 100 Sodium 138 Potassium 3.9 Chloride 107 Carbon Dioxide 24 BUN 14 Creatinine 0.74 Estimated GFR > 60.0 BUN/Creatinine Ratio 18.9 Glucose 90 Calcium 8.7 Total Bilirubin 0.6 AST 21 ALT 16 Alkaline Phosphatase 59 Total Protein 5.8 L Albumin 3.3 L Globulin 2.5 Albumin/Globulin Ratio 1.3 Amylase 111 H Lipase 70 SARS-CoV-2 (PCR) Negative [facility] Medical History Pancreatitis Surgical History History of hysterectomy Social History household members: none Smoking Status: Never smoker Assessment & Plan Assessment & Plan narrative: 76-year-old female with previous abdominal surgeries including hysterectomy with a partial small-bowel obstruction improved with conservative treatment with bowel rest and IV fluids. Plan: Appreciate General surgery input. Will await results of Gastrografin Will continue NPO Will continue with IV fluid Will continue with proton pump inhibitors Will reassess labs tomorrow Assessment 2. Leukocytosis improved today. Suspect was related to pain and vomiting and at this point there is no evidence of infection Plan: Will continue to follow will recheck in a.m. Assessment 3. Patient with previous history of drug-induced pancreatitis with current slight elevation in her amylase been normal lipase Plan: Will continue to monitor recheck in a.m.. Will continue NPO for now. I do not think that this is an acute pancreatitis but we will watch carefully. She has no new drugs except her losartan was changed to telmisartan due to sweating with the losartan. She does not drink alcohol has not used any drugs does not have a history of gallstone Assessment 4. Chronic pain Plan: Continue gabapentin and doxy Assessment 5. Hypertension stable Plan: Continue on telmisartan and amlodipine Assessment 6. GI prophylaxis and treatment of GERD Plan: Continue on proton Assessment 7. DVT prophylaxis Plan: Continue on Lovenox Time Spent With Patient Time with patient: 25 - 35 minutes
[2021-05-12 15:10] VITALS: BP 144/62; PULSE 85; RESP 17; TEMP 36.6; O2SAT 97
[2021-05-12] MEDS: ONDANSETRON 4 MG/2 ML INJ IV (15:40)
--- NOTE | 2021-05-12 19:44 | P.EN_ITS ---
Event Note Date Patient Seen: 05/12/21 Event Note: gastrograffin study shows no mechanical obstruction. more c/w i leus. will advance diet as tolerated.
--- NOTE | 2021-05-12 19:44 | PM.EVENT ---
Event Note Date Patient Seen: 05/12/21 Event Note: gastrograffin study shows no mechanical obstruction. more c/w ileus. will advance diet as tolerated.
[2021-05-12] MEDS: DOXEPIN 10 MG CAPSULE 20 MG PO (21:30)
[2021-05-12] MEDS: GABAPENTIN 300 MG CAPSULE PO (21:33)
[2021-05-12] MEDS: AMLODIPINE 5 MG TABLET 10 MG PO (21:33)
[2021-05-13] VITALS (8 sets, daily range): BP systolic 128–151; BP diastolic 57–65; PULSE 66–76; RESP 14–16; TEMP 36.3–37.1; O2SAT 92–98
[2021-05-13] MEDS: LORazepam 2 MG/ML INJ 0.5 MG IV (00:03)
[2021-05-13] MEDS: SODIUM CHLORIDE 0.45% 1,000 ML 125 ML IV (05:34)
[2021-05-13 05:51] LABS: Add Manual Diff / Slide Review NO; Basophils Absolute Auto 100 /uL (0-100); Basophils Percent Auto 1.1 % (0-2); Eosinophils Absolute Auto 500 /uL (0-450); Eosinophils Percent Auto 5.8 % (2-4); Hematocrit 38.2 % (36-46); Hemoglobin 12.5 g/dL (12.0-16.0); Lymphocytes Absolute Auto 2300 /uL (1100-4500); Lymphocytes Percent Auto 28.7 % (25-40); Mean Corpuscular HGB Conc 32.7 % (30-36); Mean Corpuscular Hemoglobin 30.8 PG (26-34); Mean Corpuscular Volume 94.2 fL (80-100); Monocytes Absolute Auto 900 /uL (0-900); Monocytes Percent Auto 11.8 % (3-14); Neutrophils Absolute Auto 4200 /uL (1500-7000); Neutrophils Percent Auto 52.6 % (50-75); Platelet Count 237 X10^3/uL (150-400); Red Blood Cell Count 4.05 X10^6/uL (4.0-5.2); Red Cell Distribution Width 13.7 % (11.6-14.8); White Blood Cell Count 7.9 X10^3/uL (4.5-11.0)
[2021-05-13 06:00] LABS: Alanine Aminotransferase 22 IU/L (<35); Albumin 3.3 g/dL (3.5-5.0); Albumin Globulin Ratio 1.3 (1.0-2.8); Alkaline Phosphatase 57 U/L (38-126); Amylase 101 U/L (30-110); Aspartate Aminotransferase 28 IU/L (14-36); BUN Creatinine Ratio 16.9 (6-22); Bilirubin Total 0.5 mg/dL (0.2-1.3); Blood Urea Nitrogen 12 mg/dL (7-17); Calcium 8.8 mg/dL (8.4-10.2); Carbon Dioxide 27 mmol/L (22-32); Chloride 107 mmol/L (98-107); Estimated Glomerular Filt Rate > 60.0 mL/min (>60); Globulin 2.5 g/dL (1.7-4.1); Glucose 82 mg/dL (80-110); HEMOLYSIS < 15 (0-50); Lipase 83 U/L (23-300); Potassium 3.7 mmol/L (3.4-5.1); Sodium 137 mmol/L (137-145); Total Protein 5.8 g/dL (6.3-8.2)
[2021-05-13] MEDS: PANTOPRAZOLE DR 40 MG TABLET PO (08:44)
[2021-05-13] MEDS: ENOXAPARIN 40 MG/0.4 ML SYRINGE SUBCUT (08:44)
[2021-05-13] MEDS: buPROPion XL 150 MG TAB 300 MG PO (08:44)
--- NOTE | 2021-05-13 14:08 | PM.PN.1 ---
Subjective Subjective Date Patient Seen: 05/13/21 Time Patient Seen: 14:08 Interval history: Patient underwent Gastrografin testing yesterday which showed ileus and did not show obstruction. The patient continues to not have abdominal distension and pain is overall better she still has pain to palpation. She still does not have much of an appetite and really is not able to eat. She is drinking fluids but is not having significant intake. She has only urinated once in the last 12 hours. She is still receiving IV fluids but her IV infiltrated. Review of systems is otherwise negative No leg pain, no chest pain, no shortness of breath, no headaches She is having copious amounts of diarrhea which she describes as being the Gastrografin. Every time she does ingest anything she then has diarrhea Exam Vital Signs (past 8 hours): - 05/13/21 07:50 Temperature 98.7 F Pulse Rate 69 Respiratory Rate 16 Blood Pressure 151/63 H Pulse Oximetry 92 Oxygen Delivery Method Room Air Oxygen Flow Rate 0 Narrative Exam Narrative: Afebrile, vital signs are stable HEENT: Unremarkable, patient appears tired Neck: Supple without adenopathy Chest: Clear to auscultation without wheezes rhonchi or crackles Cor: Regular rate and rhythm without murmur Abdomen: Positive bowel sounds x4 though slightly decreased overall but improved from yesterday. She did not have any abdominal distention. She does have tenderness mid upper left quadrant that feels like rectus abdominal muscle. She also has some mild right lower quadrant tenderness but no guarding or rebound Extremities unremarkable Objective Labs Result Diagrams: 05/13/21 05:15 05/13/21 05:15 Labs: Laboratory Results - last 24 hr 05/13/21 05/13/21 05:15 05:15 WBC 7.9 RBC 4.05 Hgb 12.5 Hct 38.2 MCV 94.2 MCH 30.8 MCHC 32.7 RDW 13.7 Plt Count 237 Neut % (Auto) 52.6 Lymph % (Auto) 28.7 [place] % (Auto) 11.8 Eos % (Auto) 5.8 H Baso % (Auto) 1.1 Neut # (Auto) 4200 Lymph # (Auto) 2300 [place] # (Auto) 900 Eos # (Auto) 500 H Baso # (Auto) 100 Sodium 137 Potassium 3.7 Chloride 107 Carbon Dioxide 27 BUN 12 Creatinine 0.71 Estimated GFR > 60.0 BUN/Creatinine Ratio 16.9 Glucose 82 Calcium 8.8 Total Bilirubin 0.5 AST 28 ALT 22 Alkaline Phosphatase 57 Total Protein 5.8 L Albumin 3.3 L Globulin 2.5 Albumin/Globulin Ratio 1.3 Amylase 101 Lipase 83 [facility] Medical History Pancreatitis Surgical History History of hysterectomy Social History household members: none Smoking Status: Never smoker Assessment & Plan Assessment & Plan narrative: 76-year-old female admitted with abdominal pain, vomiting and suspected partial small bowel obstruction Assessment 1. Partials bowel bowel obstruction seems to have either resolved or did not exist. But now with ileus and still very poor p.o. intake and still unclear etiology of her symptoms. At this point there is no evidence of infectious process. Plan: Will continue with IV fluids. Will work to advance diet. Will reassess labs in a.m.. Patient required additional 24 hour hospitalization due to need for IV hydration and further monitoring as her condition has not significantly improved to send her home. Will have her ambulate to treat ilieus Possibly in part related to the morphine but she only had 1 dose in the ER. I do not think this is related to the telmisartan which he started on approximately 6 weeks ago and we switched her off losartan goes losartan was causing diaphoresis Assessment 2. Hypertension well controlled Plan: Continue outpatient medication Assessment 3. Chronic pain Plan: Continue on outpatient doxepin and gabapentin Assessment 4. Depression stable Plan: Continue on bupropion Assessment 5. GI prophylaxis and GERD Plan: Continue Protonix while in hospital and omeprazole as outpatient Assessment 6. DVT prophylaxis Plan: Continue with Lovenox
--- NOTE | 2021-05-13 18:54 | PC.NURSE ---
DR OCHOA UPDATED ABOUT IV DIFFICULTY, NEW ORDER TO LEAVE OUT IV.
[2021-05-13] MEDS: GABAPENTIN 300 MG CAPSULE PO (20:35)
[2021-05-13] MEDS: AMLODIPINE 5 MG TABLET 10 MG PO (20:35)
[2021-05-13] MEDS: DOXEPIN 10 MG CAPSULE 20 MG PO (20:35)
[2021-05-14 05:38] LABS: Add Manual Diff / Slide Review NO; Basophils Absolute Auto 100 /uL (0-100); Eosinophils Absolute Auto 400 /uL (0-450); Eosinophils Percent Auto 5.7 % (2-4); Hematocrit 38.9 % (36-46); Hemoglobin 12.8 g/dL (12.0-16.0); Lymphocytes Absolute Auto 2000 /uL (1100-4500); Mean Corpuscular HGB Conc 32.9 % (30-36); Mean Corpuscular Hemoglobin 30.9 PG (26-34); Mean Corpuscular Volume 93.7 fL (80-100); Monocytes Absolute Auto 900 /uL (0-900); Monocytes Percent Auto 12.5 % (3-14); Neutrophils Absolute Auto 4000 /uL (1500-7000); Neutrophils Percent Auto 53.8 % (50-75); Platelet Count 246 X10^3/uL (150-400); Red Blood Cell Count 4.15 X10^6/uL (4.0-5.2); Red Cell Distribution Width 13.5 % (11.6-14.8); White Blood Cell Count 7.5 X10^3/uL (4.5-11.0)
[2021-05-14 05:45] LABS: Amylase 120 U/L (30-110); BUN Creatinine Ratio 12.5 (6-22); Blood Urea Nitrogen 9 mg/dL (7-17); Calcium 9.1 mg/dL (8.4-10.2); Carbon Dioxide 28 mmol/L (22-32); Chloride 109 mmol/L (98-107); Estimated Glomerular Filt Rate > 60.0 mL/min (>60); Glucose 106 mg/dL (80-110); HEMOLYSIS < 15 (0-50); Lipase 142 U/L (23-300); Potassium 3.9 mmol/L (3.4-5.1); Sodium 141 mmol/L (137-145)
[2021-05-14] MEDS: PANTOPRAZOLE DR 40 MG TABLET PO (06:51)
[2021-05-14 07:50] VITALS: BP 142/76; PULSE 76; RESP 16; TEMP 36.9; O2SAT 96
[2021-05-14 08:18] VITALS: O2SAT 97
[2021-05-14] MEDS: ENOXAPARIN 40 MG/0.4 ML SYRINGE SUBCUT (08:25)
[2021-05-14] MEDS: buPROPion XL 150 MG TAB 300 MG PO (08:25)
[2021-05-14] MEDS: ACETAMINOPHEN 325 MG TABLET 650 MG PO (09:08)
--- NOTE | 2021-05-14 13:44 | PM.DS.1 ---
History of Present Illness History of Present Illness Date Patient Seen: 05/14/21 Time Patient Seen: 13:45 Date of Onset of Symptoms: 05/10/21 Chief complaint: Vomiting Non Stop, Poss Pancreatitis Narrative: This pleasant 75-year-old female who is a relatively new patient to me presents to the emergency department with complaints of severe abdominal pain and vomiting. Her symptoms started a couple days ago when she developed increasing nausea and abdominal pain. She was seen in the clinic yesterday and concern for possible urinary tract infection. She was started on Macrobid she took 2 doses. She then developed vomiting today she was not sure if it was related to the antibiotics or the underlying process so we directed her to go to the ER for evaluation. In the ER was discovered that she had a bowel obstruction. She was admitted for the same. Patient last ate yesterday. Her last bowel movement was yesterday in her bowels have been normal. She has not had any constipation or diarrhea. However the patient has had intermittent nausea over the last 6 weeks and is in fact lost 10 lb of weight. She has not been trying to lose weight but she has not had as much of appetite. It feels very similar to when she had pancreatiti in the past. The pancreatitis was related to defer medication she was on Mon included the lisinopril. She denies any other urinary symptoms or blood in her urine or blood in her stool or early satiety or significant reflux Past medical history: 1. Hypertension 2. Depression 3. Hyperlipidemia 4. Hypertension 5. GERD 6. Degenerative joint disease of her left knee 7. Decreased hearing bilaterally 8. History of a heart murmur but no evidence of valvular abnormality on recent echo 9. Cervical spinal stenosis 10. History of subdural hematoma 11. History of pancreatitis as above 12. Family history of diabetes Medications Telmisartan 80 mg daily Amlodipine 10 mg daily Zofran on as needed Potassium chloride ER 20 mEq a day Furosemide 20 mg daily Gabapentin 300 mg 3 times a day for chronic pain And omeprazole 40 mg daily Bupropion ER XL 300 mg daily Doxepin 20 mg at bedtime Dicyclomine 10 mg as needed Fluticasone 2 squirts each nostril once daily Allergies: Sulfa Penicillin Lisinopril caused pancreatitis [place] cause sweating Past surgical history 2006 she had a subdural hematoma status post craniotomy Lumbar fusion Lumbar fusion in 2004 Right total knee replacement Family history: Father had diabetes was a smoker and of renal cancer Mother had hypertension depression substance abuse of a bowel blockage at age 74 and had a abdominal aortic aneurysm Patient has a brother with Diabetes and memory issues Sister was killed at age 20 I gunshot Daughter with Rett syndrome Discharge Providers Provider Date of admission: 05/11/21 18:00 Discharge Date: 05/14/21 Primary care physician: Batsheva Rocha MD Consults: 05/11/21 16:09 Consult to General Surgery Stat Comment: Consulting Provider: Chichi Hurst Reason for consultation: SBO Has provider been notified: Yes 05/11/21 17:05 Consult to Physician Urgent Comment: Consulting Provider: Batsheva Rocha Reason for consultation: admission Has provider been notified: Yes Discharge provider: Batsheva Rocha MD Summary Hospital Course Discharge Diagnosis: Abdominal pain with nausea and vomiting and dehydration Suspected partial small bowel obstruction and Gastrografin study showed no evidence of obstruction but showed small intestine ileus Hypertension Chronic pain Depression Hospital Course: Patient presents to hospital with the abdominal pain, nausea, vomiting and on x-ray and CT a partial small-bowel obstruction was noted. General surgery was consulted and patient was admitted with IV fluids. A Gastrografin was done the next day showing no evidence of a bowel obstruction but did show evidence of an ileus and diet was advanced. Patient is slowly improving but still with poor appetite. Amylase and lipase were either normal or just minimally elevated and remainder of labs were normal. White blood cell count was elevated on admission but did not continue. Patient had no fevers and no leukocytosis throughout her stay or during her illness. IV fluids were continued until 12 hours prior to discharge. At that time patient still had poor appetite but was able to eat a full diet with continued diarrhea but no nausea or vomiting and no distension or increase in her pain and she was discharged home in stable condition. Patient is discharged home on her outpatient medications to follow-up with me in 2 weeks Status at Discharge Cognitive/behavioral status at discharge: oriented Functional status at discharge: independent ambulation Overall status at discharge: patient is progressing back to baseline Exam Vital Signs (past 8 hours): - 05/14/21 07:50 05/14/21 08:18 Temperature 98.4 F Pulse Rate 76 Respiratory Rate 16 Blood Pressure 142/76 H Pulse Oximetry 96 97 Oxygen Delivery Method Room Air Oxygen Flow Rate 0 Narrative Exam Narrative: Afebrile, vital signs are stable HEENT unremarkable Neck: Supple without adenopathy Chest: Clear to auscultation without wheezes rhonchi or crackles Cor: Regular rate and rhythm without a murmur Abdomen: Positive bowel sounds, soft, nontender, nondistended, no hepatosplenomegaly Extremities: No edema pulses intact Objective Labs Result Diagrams: 05/14/21 05:25 05/14/21 05:25 Labs: Laboratory Results - last 24 hr 05/14/21 05/14/21 05:25 05:25 WBC 7.5 RBC 4.15 Hgb 12.8 Hct 38.9 MCV 93.7 MCH 30.9 MCHC 32.9 RDW 13.5 Plt Count 246 Neut % (Auto) 53.8 Lymph % (Auto) 27.0 [place] % (Auto) 12.5 Eos % (Auto) 5.7 H Baso % (Auto) 1.0 Neut # (Auto) 4000 Lymph # (Auto) 2000 [place] # (Auto) 900 Eos # (Auto) 400 Baso # (Auto) 100 Sodium 141 Potassium 3.9 Chloride 109 H Carbon Dioxide 28 BUN 9 Creatinine 0.72 Estimated GFR > 60.0 BUN/Creatinine Ratio 12.5 Glucose 106 Calcium 9.1 Amylase 120 H Lipase 142 D PFSH Medical History Pancreatitis Surgical History History of hysterectomy Social History household members: none Smoking Status: Never smoker Discharge Assessment & Plan Assessment and Plan Assessment: Abdominal pain with nausea vomiting thought to be secondary to ileus from possible enteritis. Patient is improved Plan of Treatment: Discharge home on outpatient medications Follow-up with me in 2 weeks Discuss reasons to call prior Discussed diet Will do labs at follow-up and if symptoms persist will refer for to GI Discharge Plan Discharge Plan Patient Disposition: Home Discharge orders & Medications Prescriptions: Continued amlodipine [Norvasc] 5 MG tablet 10 mg PO QDAY Qty: 0 RF: 0 doxepin 10 mg capsule 20 mg PO BEDTIME RF: 0 omeprazole 40 mg capsule,delayed release(DR/EC) 40 mg PO DAILY RF: 0 telmisartan 80 mg tablet 80 mg PO BEDTIME RF: 0 gabapentin 300 mg capsule 300 mg PO TID RF: 0 furosemide 20 mg tablet 20 mg PO DAILY RF: 0 albuterol 90 mcg/actuation Aerosol 90 mcg INHALATION PRN PRN (Reason: Shortness Of Breath) RF: 0 dicyclomine 10 mg capsule 10 mg PO PRN PRN (Reason: Abdominal Discomfort) RF: 0 bupropion HCl 300 mg tablet extended release 24 hr 300 mg PO DAILY RF: 0 cholecalciferol (vitamin D3) [Vitamin D3] 25 mcg (1,000 unit) tablet 25 mcg PO DAILY RF: 0 potassium chloride 20 mEq tablet extended release 20 meq PO DAILY RF: 0 Follow up/Referrals: Batsheva Rocha MD [Primary Care Provider] - Diet/Activity/Treatments Diet: Diet as Tolerated Visit Report/Discharge Packet Instructions: Diarrhea, DI for Ileus, DI for Small Bowel Obstruction, How to Prevent Falls Discharge Data Primary Care Provider: Batsheva Rocha
--- NOTE | 2021-05-14 14:19 | PC.NURSE ---
Day shift: Pt left unit via today at approx 1420. Paperwork signed and all questions answered. Pt in good spirits about going home today. No new home meds. Pt has all personal belongings and meds from pharmacy. Pt's Daughter is drivng her home today. Pt has been ambulating in halls today and steady on her feet. She did report loose stools this AM. She also reported that she thinks she is getting better.
== END 2021-05-14 14:21 | disposition home or self-care (01) | DRG 390 ==
LOC: ED 16:34 → AC 18:02
PROVIDERS: Admitting Provider Family Medicine; Emergency Provider Emergency Medicine; PCP Family Medicine; Referring Provider Emergency Medicine; Visit Provider Family Medicine
DX: K56.7 Ileus, unspecified (principal); K52.9 Noninfective gastroenteritis and colitis, unspecified; I10 Essential (primary) hypertension; E78.5 Hyperlipidemia, unspecified; K21.9 Gastro-esophageal reflux disease without esophagitis; F32.9 Major depressive disorder, single episode, unspecified; G89.29 Other chronic pain; Z20.822 Contact with and (suspected) exposure to COVID-19
CPT/HCPCS: 36415; 74018; 74177; 80048; 80053; 81003; 82150; 83690; 85025; 87635; 93005; 93010; 96361; 96374; 96375; 99232; 99284; C9803; C9113; J1650; J2060; J2270; J2405; J7050; Q9967

== ENCOUNTER 2021-12-28 07:21 | Observation (INO) | payer MEDICARE, SELFPAY ==
[2021-05-11 19:22] VITALS: BMI 32.5
[2021-12-28] VITALS (27 sets, daily range): BP systolic 124–184; BP diastolic 60–79; PULSE 59–70; RESP 16–24; TEMP 37–37.5; O2SAT 96–98; BMI 30.9
--- NOTE | 2021-12-28 07:37 | DI.RAD.S_ITS ---
PROCEDURE: XR CHEST 1V INDICATIONS: Chest Pain TECHNIQUE: One view of the chest was acquired. COMPARISON: [facility], CT, CT ABDOMEN PELVIS W CON, 05/11/2021, 15:20. FINDINGS: Surgical changes and devices: Left breast implant is noted with capsular calcifications. Lungs and pleura: Lungs are clear. No pleural effusions or pneumothorax. Mediastinum: Mediastinal contours appear normal. Heart size is normal. Bones and chest wall: No suspicious bony lesions. Overlying soft tissues appear unremarkable. Peripherally calcified lesion in the upper abdomen corresponds to the splenic lesion seen on the prior CT from 05/11/2021. IMPRESSION: No acute cardiopulmonary abnormality. Dictated by: Garland Lo M.D. on 12/28/2021 at 7:55 Approved by: Garland Lo M.D. on 12/28/2021 at 8:00
[2021-12-28 07:47] LABS: Add Manual Diff / Slide Review NO; Basophils Absolute Auto 100 /uL (0-100); Basophils Percent Auto 1.8 % (0-2); Eosinophils Absolute Auto 400 /uL (0-450); Eosinophils Percent Auto 6.6 % (2-4); Hematocrit 38.8 % (36-46); Hemoglobin 13.1 g/dL (12.0-16.0); Lymphocytes Absolute Auto 2300 /uL (1100-4500); Lymphocytes Percent Auto 33.4 % (25-40); Mean Corpuscular HGB Conc 33.7 % (30-36); Mean Corpuscular Hemoglobin 31.2 PG (26-34); Mean Corpuscular Volume 92.6 fL (80-100); Monocytes Absolute Auto 600 /uL (0-900); Monocytes Percent Auto 8.9 % (3-14); Neutrophils Absolute Auto 3300 /uL (1500-7000); Neutrophils Percent Auto 49.3 % (50-75); Platelet Count 245 X10^3/uL (150-400); Red Blood Cell Count 4.19 X10^6/uL (4.0-5.2); Red Cell Distribution Width 14.8 % (11.6-14.8); White Blood Cell Count 6.8 X10^3/uL (4.5-11.0)
--- NOTE | 2021-12-28 07:51 | ED.CHESTPAIN ---
HPI - Chest Pain General Chief Complaint: Chest Pain Stated Complaint: CHEST PAINS Time Seen by Provider: 12/28/21 07:46 Source: patient Mode of arrival: Ambulatory Limitations: no limitations Limitations: no limitations History of Present Illness HPI narrative: This is a 76-year-old female with history of pancreatitis, hypertension, dyslipidemia and GERD. Patient has also had a history of bowel obstruction. She states she has had abdominal pain initially then radiating up into her chest sort of in the epigastric region starting over the last 2 days. It sort of comes and goes intermittently will often last for several hours and then relieved. Nothing seems to exacerbate or alleviate it. She has tried antacids without help. She does have history of pancreatitis and states it feels somewhat similar although not as intense. She denies any shortness of breath, no fevers or chills. No cold cough or congestion. No nausea or vomiting. She has had some loose bowels recently. Pain does not radiate to the back. Patient has not had any swelling of her extremities. She has had a prior brain surgery for a traumatic subdural, knee surgery. She restarted her omeprazole this week. She is on antihypertensives she does not take statins due to intolerance and also started trazodone 3 weeks ago. Aspirin, NSAIDs really upset her stomach she is allergic to penicillin and sulfa. No tobacco, alcohol and occasional bowl edible THC but no other illicit. Dr. Rocha is PCP. Related Data Home Medications Medication Instructions Recorded Confirmed amlodipine 5 mg tablet (Norvasc) 10 mg PO QDAY #0 06/29/11 12/28/21 albuterol 90 mcg/actuation aerosol 90 mcg INHALATION PRN PRN 05/11/21 12/28/21 inhaler bupropion HCl 300 mg 24 hr tablet, 300 mg PO DAILY 05/11/21 12/28/21 extended release cholecalciferol (vitamin D3) 25 25 mcg PO DAILY 05/11/21 12/28/21 mcg (1,000 unit) tablet (Vitamin D3) dicyclomine 10 mg capsule 10 mg PO PRN PRN 05/11/21 12/28/21 furosemide 20 mg tablet 20 mg PO DAILY 05/11/21 12/28/21 gabapentin 300 mg capsule 300 mg PO TID 05/11/21 12/28/21 omeprazole 40 mg capsule,delayed 40 mg PO DAILY 05/11/21 12/28/21 release potassium chloride 20 mEq 20 meq PO DAILY 05/11/21 12/28/21 tablet,extended release telmisartan 80 mg tablet 80 mg PO BEDTIME 05/11/21 12/28/21 trazodone 50 mg tablet 50 mg PO BEDTIME 12/28/21 12/28/21 Allergies Allergy/AdvReac Type Severity Reaction Status Date / Time Penicillins Allergy Severe Rash Verified 12/28/21 07:28 Sulfa (Sulfonamide Allergy Severe Rash Verified 12/28/21 07:28 Antibiotics) Review of Systems Review of Systems ROS Unobtainable: All systems reviewed & are unremarkable except as noted in HPI and below Patient History Medical History Pancreatitis Surgical History History of hysterectomy Social History household members: none Smoking Status: Never smoker alcohol intake: former Smoking Status: Never smoker alcohol intake frequency: holidays/special occasions only Substance Use Type: does not use Exam Narrative Exam Narrative: GENERAL: Alert and oriented x three, female in mild distress. HEENT: Head normocephalic, atraumatic, EOMI, pupils reactive, face symmetric, moist mucous membranes NECK: Supple, full range of motion CARDIOVASCULAR: Regular rate and rhythm without murmurs, rubs or gallops. No JVD. RESPIRATORY: Breath sounds equal bilaterally, no wheezes rales or rhonchi. ABDOMEN: Soft, patient is tender mid abdomen bilaterally. Nondistended. Normoactive bowel sounds all 4 quadrants. No guarding or rebound, rigidity, no mass : No CVA tenderness EXTREMITIES: Normal range of motion, no clubbing or edema. Neurovascularly intact NEUROLOGICAL: Cranial nerves II through XII grossly intact. Moving all extremities SKIN: Warm, dry, no petechiae, no rashes or lesions. Initial Vital Signs Initial Vital Signs: Vital Signs Pulse Rate 70 12/28/21 07:25 Pulse Oximetry 97 12/28/21 07:25 Scores HEART Score Heart Score history: Slightly Suspicious Heart Score EKG: Normal Heart Score Age: > or = 65 years old Heart Score risk factors: 1-2 risk factors Heart Score troponin: < or = to normal limit Heart Score Total: 3 Course Orders Ordered: ED Orders 12/28/21 11:04 COVID19 -Nasal swab/Pre-Proc Stat Acetaminophen (Acetaminophen 325 Mg Tablet) 650 mg PO Q6HR [facility] Last Admin: 12/28/21 18:11 Dose: Not Given Documented by: JEOVANY Al Hydrox/Mg Hydrox/Simethicone (Mag Hydrox/Alum/Simeth 30 Ml Udc) 30 ml PO Q6HR PRN PRN Reason: Dyspepsia Albuterol (Albuterol 2.5 Mg/3 Ml Neb (Adult)) 2.5 mg INH Q2H PRN PRN Reason: Shortness Of Breath Amlodipine Besylate (Amlodipine 5 Mg Tablet) 10 mg PO DAILY [facility] Bupropion HCl (Bupropion Xl 150 Mg Tab) 300 mg PO DAILY [facility] Dicyclomine HCl (Dicyclomine 10 Mg Capsule) 10 mg PO PRN PRN PRN Reason: Abdominal Discomfort Furosemide (Furosemide 20 Mg Tablet) 20 mg PO DAILY [facility] Gabapentin (Gabapentin 300 Mg Capsule) 300 mg PO TID [facility] Last Admin: 12/28/21 17:47 Dose: Not Given Documented by: JEOVANY Losartan Potassium (Losartan 50 Mg Tablet) 100 mg PO BEDTIME [facility] Morphine Sulfate (Morphine 2 Mg/Ml Inj) 2 mg IV Q5MIN PRN PRN Reason: Chest Pain Naloxone HCl (Naloxone 0.4 Mg/Ml Vial) 0.2 mg IV Q2MIN PRN PRN Reason: Opiate Reversal Nitroglycerin (Nitroglycerin 0.4 Mg Sl Tab) 0.4 mg SL [id number] PRN PRN Reason: Chest Pain Last Admin: 12/28/21 10:20 Dose: 0.4 mg Documented by: MARIOLA Nitroglycerin (Nitroglycerin 0.4 Mg Sl Tab) 0.4 mg SL [id number] PRN PRN Reason: Chest Pain Non-Formulary Medication (Non-Formulary Medication) 1 each NASAL DAILY [facility] Ondansetron HCl (Ondansetron 4 Mg/2 Ml Inj) 4 mg IV Q8HR PRN PRN Reason: Nausea And Vomiting Pantoprazole Sodium (Pantoprazole Dr 40 Mg Tablet) 40 mg PO 0600 [facility] Potassium Chloride (Potassium Chloride 20 Meq Tab) 20 meq PO DAILY [facility] Trazodone HCl (Trazodone 50 Mg Tablet) 50 mg PO BEDTIME [facility]IE Vitamin D (Cholecalciferol (Vitamin D3) 1,000 Unit Tablet) 1,000 unit PO DAILY KATIE Discontinued Medications Aspirin (Aspirin 81 Mg Chew Tab) 324 mg PO NOW ONE Stop: 12/28/21 07:38 Last Admin: 12/28/21 08:12 Dose: 324 mg Documented by: MARIOLA Al Hydrox/Mg Hydrox/Simethicone 20 ml/ Lidocaine HCl 15 ml 0 ml PO NOW ONE Stop: 12/28/21 08:05 Last Admin: 12/28/21 08:12 Dose: 30 ml Documented by: MARIOLA Sodium Chloride (Normal Saline 0.9%) 1,000 mls @ 150 mls/hr IV CONT KATIE Last Infusion: 12/28/21 10:23 Dose: 0 mls/hr Documented by: Admin: 12/28/21 08:12 Dose: 150 mls/hr Documented by: MARIOLA Pantoprazole Sodium (Pantoprazole 40 Mg Vial) 40 mg IV NOW ONE Stop: 12/28/21 11:04 Last Admin: 12/28/21 11:10 Dose: 40 mg Documented by: MARIOLA Reevaluation(s) Reevaluation #1: patient chest pain improved with GI cocktail and then returned. Given nitro SL and had resolution. Time: 10:06 Reevaluation #2: Patient reluctant to admit. Unclear if she has true cardiac chest pain verses reflux or esophagitis. Would like to keep patient for chest pain patient somewhat reluctant but after discussion and talk with her primary care service a decision was made to keep her chest pain not. Time: 11:04 Consultations Consultation #1: Dr. Elizabeth, for Dr. Rocha. Patient is a 76-year-old female with risk factors of hypertension, dyslipidemia who has had abdominal pain now with anterior chest pain. Labs, EKG are reassuring had some mild improvement with GI cocktail but had resolution with a nitro sublingual. She did have CT angiography which showed no acute changes that should cause her pain today. Number me accepts for chest pain obsess. Will see patient to put in orders. Vital Signs Vital signs: Vital Signs - 8 hr 12/28/21 11:00 Pulse Rate 59 L Respiratory Rate 22 Blood Pressure 149/75 H Pulse Oximetry 98 MDM - Chest Pain Lab Data Result diagrams: 12/28/21 07:32 12/28/21 07:32 Labs: Lab Results 12/28/21 12/28/21 12/28/21 Range/Units 07:32 07:32 09:30 WBC 6.8 (4.5-11.0) X10^3/uL RBC 4.19 (4.0-5.2) X10^6/uL Hgb 13.1 (12.0-16.0) g/dL Hct 38.8 (36-46) % MCV 92.6 (80-100) fL MCH 31.2 (26-34) PG MCHC 33.7 (30-36) % RDW 14.8 (11.6-14.8) % Plt Count 245 (150-400) X10^3/uL Neut % (Auto) 49.3 L (50-75) % Lymph % (Auto) 33.4 (25-40) % [place] % (Auto) 8.9 (3-14) % Eos % (Auto) 6.6 H (2-4) % Baso % (Auto) 1.8 (0-2) % Neut # (Auto) 3300 (8620-0999) /uL Lymph # (Auto) 2300 (9268-3214) /uL [place] # (Auto) 600 (0-900) /uL Eos # (Auto) 400 (0-450) /uL Baso # (Auto) 100 (0-100) /uL Sodium 141 (137-145) mmol/L Potassium 4.0 (3.4-5.1) mmol/L Chloride 107 (98-107) mmol/L Carbon Dioxide 29 (22-32) mmol/L BUN 15 (7-17) mg/dL Creatinine 0.78 (0.52-1.04) mg/dL Estimated GFR > 60.0 (>60) mL/min BUN/Creatinine Ratio 19.2 (6-22) Glucose 115 H (80-110) mg/dL Calcium 9.8 (8.4-10.2) mg/dL Total Bilirubin 0.7 (0.2-1.3) mg/dL AST 24 (14-36) IU/L ALT 16 (<35) IU/L Alkaline Phosphatase 60 (38-126) U/L Total Creatine Kinase 53 (30-135) U/L CK-MB (CK-2) TNP CK-MB (CK-2) Rel Index TNP Troponin I < 0.012 < 0.012 (0.01-0.034) ng/mL Total Protein 6.9 (6.3-8.2) g/dL Albumin 4.2 (3.5-5.0) g/dL Globulin 2.7 (1.7-4.1) g/dL Albumin/Globulin Ratio 1.6 (1.0-2.8) Lipase 129 (23-300) U/L Urine Dip Bedside Urine Glucose Negative Bedside Urine Bilirubin - Negative Bedside Urine Ketone - Negative Urine Specific Nicholson 1.010 Bedside Urine Occult Blood - Negative Bedside Urine pH 6.5 Bedside Urine Protein - Negative Bedside Urine Urobilinogen - Negative Bedside Urine Nitrite - Negative Bedside Urine Leukocytes - Negative Esterase Imaging Data Chest x-ray: Radiologist's Impression: [address] [address] XRay Report Signed Patient: Trudy Dillard MR#: [id number] : 1945 Acct:[id number] Age/Sex: 76 / F Date of Service: 12/28/21 Loc: ED Accession Number: [id number] ?? Procedure: XR chest 1V Ordering Provider: Irma Rabago D.O. PROCEDURE:? XR CHEST 1V ? INDICATIONS:? Chest Pain ? TECHNIQUE:? One view of the chest was acquired.? ? COMPARISON:? [facility], CT, CT ABDOMEN PELVIS W CON, 05/11/2021, 15:20. ? FINDINGS:? ? Surgical changes and devices:? Left breast implant is noted with capsular calcifications. ? Lungs and pleura:? Lungs are clear.? No pleural effusions or pneumothorax.? ? Mediastinum:? Mediastinal contours appear normal.? Heart size is normal.? ? Bones and chest wall:? No suspicious bony lesions.? Overlying soft tissues appear unremarkable.? Peripherally calcified lesion in the upper abdomen corresponds to the splenic lesion seen on the prior CT from 05/11/2021. ? IMPRESSION:? No acute cardiopulmonary abnormality. ? ? Dictated by: Garland Lo M.D. on 12/28/2021 at 7:55 ? ? Approved by: Garland Lo M.D. on 12/28/2021 at 8:00?? CT chest/abd/pelvis: Radiologist's Impression: [address] [address] [address] Scan Report Signed Patient: Vashti Hernández MR#: [id number] : 07/24/1933 Acct:[id number] Age/Sex: 88 / F Date of Service: 12/28/21 Loc: ED Accession Number: [id number] ?? Procedure: CT abdomen pelvis w con Ordering Provider: Irma Rabago D.O. PROCEDURE:? CT ABDOMEN PELVIS W CON ? INDICATIONS:? suprapubic and hammond not draining appropriately ? TECHNIQUE:? After the administration of intravenous contrast, axial sections acquired from the lung bases to the pubic symphysis.? Coronal and sagittal reformats were performed.? For radiation dose reduction, the following was used:? automated exposure control, adjustment of mA and/or kV according to patient size.? ? COMPARISON:? [facility], CT, CT ABDOMEN PELVIS WO/W CON, 10/04/2021, 12:08. ? FINDINGS:? Image quality:? Excellent.? ? Lung bases:? Coarse bibasilar interstitial markings.? No dense consolidations or pleural effusion. Heart:? Moderate cardiomegaly and dense mitral annular calcification.? No hiatal hernia. ? ABDOMEN: Liver:? Liver contour is normal.? There is trace perihepatic ascites. Gallbladder:? No stones or wall thickening. Biliary ducts:? Nondilated. Pancreas:? Normal. Spleen:? Normal size.? Few punctate calcifications. Adrenal Glands:? No masses Kidneys and Ureters:? Normal enhancement.? No hydronephrosis.? No hydroureter. ? Stomach and Bowel:? Stomach, small bowel loops, and colon are unremarkable.? Absent appendix Peritoneum:? The urinary bladder is decompressed and the suprapubic tube has been displaced and is present in the anterior peritoneum and ending bluntly among small bowel loops. ? There is a small amount of diffuse four quadrant ascites and scattered free air throughout the peritoneal cavity.? Small amount of free fluid is present in the pelvis. ? Ventral Wall:? There is subcutaneous gas around the suprapubic catheter.? No hernias. Abdominal Nodes:? No retroperitoneal or mesenteric adenopathy by size criteria.? Vessels:? Aorta and inferior vena cava are normal in size.? Tortuous aortic course with moderate calcification. ? PELVIS: Pelvic Organs:? Decompressed urinary bladder contains of Hammond catheter balloon.? The uterus appears absent.? No suspicious ovarian masses. Pelvic Nodes: No enlarged lymph nodes.? Miscellaneous: No hernias are seen. ? ? ? Bones:? There is osteopenia and multilevel degenerative disc and endplate change throughout the spine.? Scoliotic curvature of the spine. ? ? IMPRESSION:? ? 1. There has been displacement of a suprapubic catheter from the urinary bladder which is now decompressed, likely due to the Hammond catheter in place.? The suprapubic tube remains present in the peritoneum and there is free fluid and free air throughout the peritoneal cavity.? This may be secondary to a urine leak from the urinary bladder defect where the suprapubic catheter was previously, or may be air introduced through the displaced suprapubic catheter with reactive diffuse fluid. ? 2. Attempts were made to contact the emergency room with these findings, however the phone system is not functioning.? ? ? Dictated by: Cat Bai M.D. on 12/28/2021 at 9:09 ? ? Approved by: Cat Bai M.D. on 12/28/2021 at 9:35?? ECG Data Attestation: I personally reviewed and interpreted this ECG as follows: Interpretation: Sinus rhythm rate of 64 ID 200, QRS of 98 QTC 427. Q-wave in lead [address] elevation. No depression appreciated. Patient does not have any priors for comparison. EKG to shows no acute changes from prior today. Sinus rhythm with first-degree AV block. Rate of 60, ID 210, QRS of 102 and QTC of 412. MDM Narrative Medical decision making narrative: This is a 76-year-old female comes in with complaint of abdominal pain that now radiates to her chest. Patient states she has had pancreatitis somewhat similar but not as intense. Her labs today are reassuring for in terms of pancreatitis, troponin is negative x2 with no acute EKG changes pain seems to be intermittent with no clear exacerbating or alleviating factors. With its changing location I did order a CT chest abdomen pelvis angio which does not show any acute changes to the aorta, there is atherosclerotic change and there is a calcified splenic mass that is unchanged from priors. Patient does have some cardiac risk factors, after discussion GI cocktail was helpful but discomfort is returning. Tried a course of nitro sublingual and had resolution. After discussion would like to keep prefer chest pain obstetric patient somewhat reluctant. Discussed with her primary care service who kindly accepts for chest pain office. Discharge Plan Departure Patient Disposition: Admitted as Observation Clinical Impression: Splenic mass, Atypical chest pain Admit Date/Time: 12/28/21 11:01 Admit Provider: Raghav Eilzabeth
[2021-12-28 07:53] LABS: Alanine Aminotransferase 16 IU/L (<35); Albumin 4.2 g/dL (3.5-5.0); Albumin Globulin Ratio 1.6 (1.0-2.8); Alkaline Phosphatase 60 U/L (38-126); Aspartate Aminotransferase 24 IU/L (14-36); BUN Creatinine Ratio 19.2 (6-22); Bilirubin Total 0.7 mg/dL (0.2-1.3); Blood Urea Nitrogen 15 mg/dL (7-17); Calcium 9.8 mg/dL (8.4-10.2); Carbon Dioxide 29 mmol/L (22-32); Chloride 107 mmol/L (98-107); Creatine Kinase 53 U/L (30-135); Estimated Glomerular Filt Rate > 60.0 mL/min (>60); Globulin 2.7 g/dL (1.7-4.1); Glucose 115 mg/dL (80-110); HEMOLYSIS < 15 (0-50); Lipase 129 U/L (23-300); Sodium 141 mmol/L (137-145); Total Protein 6.9 g/dL (6.3-8.2)
[2021-12-28 08:04] LABS: Troponin I < 0.012 ng/mL (0.01-0.034)
[2021-12-28] MEDS: SODIUM CHLORIDE 0.9% 1,000 ML 150 ML IV (08:12)
[2021-12-28] MEDS: MAG HYDROX/ALUMINUM/SIMETH SUS 20 ML, LIDOCAINE VISCOUS 2% 15 ML PO (08:12)
[2021-12-28] MEDS: ASPIRIN 81 MG CHEW TAB 324 MG PO (08:12)
--- NOTE | 2021-12-28 08:15 | DI.CT.S_ITS ---
PROCEDURE: CT ANGIO CHEST ABDOMEN PELVIS INDICATIONS: interrmitent abd pain, now radiating to chest x 2 days. htn TECHNIQUE: Precontrast 5 mm thick sections acquired from the lung apices to the iliac crests. After the administration of intravenous contrast, 2.5 mm thick sections again acquired from the lung apices to the iliac crests. Maximum intensity projection (MIP) oblique sagittal and coronal reformats were then acquired. For radiation dose reduction, the following was used: automated exposure control. COMPARISON: [facility], CT, CT ABDOMEN PELVIS W CON, 05/11/2021, 15:20. FINDINGS: Image quality: Portions of the lower pelvis are suboptimally evaluated secondary to metallic streak artifact from hip arthroplasty. AORTA: Aorta demonstrates areas of mural thrombus and wall calcification consistent with atherosclerotic disease most prominent in the infrarenal portion. There are no areas of hemodynamically significant stenosis, vascular occlusion, aneurysmal dilation or dissection.. CHEST: Lungs and pleura: No acute airspace opacities. No pleural effusions or pneumothorax. Central and peripheral airways are patent and normal in caliber. Mediastinum: Heart size is normal. No pericardial effusion. No mediastinal or hilar adenopathy by size criteria. Central pulmonary arteries are normal in size. Esophagus is normal in caliber. No hiatal hernias. Bones and chest wall: No axillary adenopathy by size criteria. Thyroid gland is unremarkable. Breast implants are present. No suspicious bony lesions. No vertebral body compression fractures. ABDOMEN: Vasculature: Celiac trunk and mesenteric arteries are patent. Renal arteries are also patent. Solid organs: Liver is normal in size and enhancement. Gallbladder is unremarkable . Biliary system is non dilated. Pancreas enhances normally. Spleen is normal in size and enhancement. Calcified splenic mass is unchanged. No adrenal nodules. Both kidneys are normal in size and enhancement, without hydronephrosis. Simple right renal cyst is present. Peritoneum and bowel: Trace dependent pelvic fluid. Bowel loops are normal in caliber and wall thickness. Nodes and vessels: No retroperitoneal or mesenteric adenopathy by size criteria. Inferior vena cava is normal in morphology. Miscellaneous: No ventral hernias. PELVIS: Genitourinary: Bladder wall thickness is normal. Miscellaneous: No inguinal hernias or adenopathy. No ventral hernias. Bones: No suspicious bony lesions. No vertebral body compression fractures. Posterior fusion is present at L3-4. IMPRESSION: Aorta demonstrates atherosclerotic change without evidence of dissection. Unchanged appearance of splenic mass possibly related to prior infection, trauma or inflammation. Dictated by: Sandra Lee M.D. on 12/28/2021 at 8:36 Approved by: Sandra Lee M.D. on 12/28/2021 at 9:06
[2021-12-28 10:05] LABS: Troponin I < 0.012 ng/mL (0.01-0.034)
[2021-12-28] MEDS: NITROGLYCERIN 0.4 MG SL TAB SL (10:20)
[2021-12-28] MEDS: PANTOPRAZOLE 40 MG VIAL IV (11:10)
[2021-12-28 11:36] LABS: COVID19 -Nasal RAPID Negative (Negative)
[2021-12-28 16:51] LABS: Troponin I < 0.012 ng/mL (0.01-0.034)
--- NOTE | 2021-12-28 16:55 | PC.NURSE ---
Admit- Patient admitted to the floor at 1415. She denies any chest pain and her heart rate is regular. Patient is independent in the room, she has voided and is waiting for her dinner. O sob noted or complaints of dizziness.
--- NOTE | 2021-12-28 18:36 | PM.HP.1 ---
History of Present Illness History of Present Illness Date Patient Seen: 12/28/21 Time Patient Seen: 12:30 Date of Onset of Symptoms: 12/28/21 Chief complaint: CHEST PAINS Narrative: Patient is a 76-year-old female with a history of reflux but no previous heart disease history who presents with chest pain. She has a 2 day history of pain which started in her epigastric area and then moved into her chest. Seem to last several hours and then discontinued. Some intensity increased. Did not seem to help with an acids. Patient has a history of esophagitis and reflux and has been not taking her omeprazole on a regular basis. She otherwise had not had any diaphoresis nausea vomiting change in bowel movements fevers chills cough chills or other chest pain. Pain seemed to be mostly in her epigastrium were central chest with some radiation to her back she has had no dizziness lightheadedness or other change. Patient has a history of bowel obstruction and pancreatitis. None of which felt like that. Patient was given nitro in the ER not completely resolved but no other changes. Patient was admitted for observations for cardiac workup. Past medical history is significant for hyperlipidemia, hypertension, GERD, depression, Past surgical history subdural hematoma craniotomy 2006, lumbar fusion, x2, right total knee. Family history. Father with diabetes renal cancer, mother hypertension depression 7 is abuse AAA, brother with diabetes memory issue, sister with traumatic , Social history. , 3 children. Retired. Patient History Medical History Pancreatitis Surgical History History of hysterectomy Family & Social History Social History: household members none Safety & Behavioral: Feels Safe in Current Yes Environment Been Physically Hurt or No Threatened By a Person Suicidal Ideation Description None Suicide Plan Description No Plan Tobacco & Substance use: Smoking Status Never smoker alcohol intake former alcohol intake frequency holiday/special occasion Substance Use Type does not use Meds Home Medications and Allergies Home Medications Medication Instructions Recorded Confirmed Type amlodipine 5 mg tablet (Norvasc) 10 mg PO QDAY #0 06/29/11 12/28/21 History albuterol 90 mcg/actuation aerosol 90 mcg INHALATION PRN PRN 05/11/21 12/28/21 History inhaler bupropion HCl 300 mg 24 hr tablet, 300 mg PO DAILY 05/11/21 12/28/21 History extended release cholecalciferol (vitamin D3) 25 25 mcg PO DAILY 05/11/21 12/28/21 History mcg (1,000 unit) tablet (Vitamin D3) dicyclomine 10 mg capsule 10 mg PO PRN PRN 05/11/21 12/28/21 History furosemide 20 mg tablet 20 mg PO DAILY 05/11/21 12/28/21 History gabapentin 300 mg capsule 300 mg PO TID 05/11/21 12/28/21 History omeprazole 40 mg capsule,delayed 40 mg PO DAILY 05/11/21 12/28/21 History release potassium chloride 20 mEq 20 meq PO DAILY 05/11/21 12/28/21 History tablet,extended release telmisartan 80 mg tablet 80 mg PO BEDTIME 05/11/21 12/28/21 History trazodone 50 mg tablet 50 mg PO BEDTIME 12/28/21 12/28/21 History Allergies Allergy/AdvReac Type Severity Reaction Status Date / Time Penicillins Allergy Severe Rash Verified 12/28/21 07:28 Sulfa (Sulfonamide Allergy Severe Rash Verified 12/28/21 07:28 Antibiotics) Review of Systems Review of Systems Narrative: Review systems negative except as above Exam Vital Signs (past 8 hours): - 12/28/21 11:00 12/28/21 11:30 12/28/21 12:00 Temperature Pulse Rate 59 L 61 62 Respiratory Rate 22 24 20 Blood Pressure 149/75 H Pulse Oximetry 98 97 96 12/28/21 12:30 12/28/21 13:00 12/28/21 13:30 Temperature Pulse Rate 62 62 63 Respiratory Rate 20 20 20 Blood Pressure Pulse Oximetry 97 96 98 12/28/21 14:00 12/28/21 14:11 12/28/21 14:20 Temperature 99.3 F Pulse Rate 65 69 Respiratory Rate 20 16 Blood Pressure 149/68 H 156/63 H Pulse Oximetry 98 97 Oxygen Delivery Method Room Air Narrative Exam Narrative: Alert pleasant female lying in bed no acute distress HEENT exam is unremarkable neck supple without adenopathy lungs are clear. Heart regular rate and rhythm without murmurs clicks rubs or gallops. Abdomen is soft positive bowel sounds nontender. Extremities without cyanosis clubbing edema. Neurologic exam is nonfocal. Objective Labs Result Diagrams: 12/28/21 07:32 12/28/21 07:32 Labs: Laboratory Results - last 24 hr 12/28/21 12/28/21 12/28/21 07:32 07:32 09:30 WBC 6.8 RBC 4.19 Hgb 13.1 Hct 38.8 MCV 92.6 MCH 31.2 MCHC 33.7 RDW 14.8 Plt Count 245 Neut % (Auto) 49.3 L Lymph % (Auto) 33.4 [place] % (Auto) 8.9 Eos % (Auto) 6.6 H Baso % (Auto) 1.8 Neut # (Auto) 3300 Lymph # (Auto) 2300 [place] # (Auto) 600 Eos # (Auto) 400 Baso # (Auto) 100 Sodium 141 Potassium 4.0 Chloride 107 Carbon Dioxide 29 BUN 15 Creatinine 0.78 Estimated GFR > 60.0 BUN/Creatinine Ratio 19.2 Glucose 115 H Calcium 9.8 Total Bilirubin 0.7 AST 24 ALT 16 Alkaline Phosphatase 60 Total Creatine Kinase 53 CK-MB (CK-2) TNP CK-MB (CK-2) Rel Index TNP Troponin I < 0.012 < 0.012 Total Protein 6.9 Albumin 4.2 Globulin 2.7 Albumin/Globulin Ratio 1.6 Lipase 129 SARS-CoV-2 (PCR) 12/28/21 12/28/21 11:04 16:11 WBC RBC Hgb Hct MCV MCH MCHC RDW Plt Count Neut % (Auto) Lymph % (Auto) [place] % (Auto) Eos % (Auto) Baso % (Auto) Neut # (Auto) Lymph # (Auto) [place] # (Auto) Eos # (Auto) Baso # (Auto) Sodium Potassium Chloride Carbon Dioxide BUN Creatinine Estimated GFR BUN/Creatinine Ratio Glucose Calcium Total Bilirubin AST ALT Alkaline Phosphatase Total Creatine Kinase CK-MB (CK-2) CK-MB (CK-2) Rel Index Troponin I < 0.012 Total Protein Albumin Globulin Albumin/Globulin Ratio Lipase SARS-CoV-2 (PCR) Negative Assessment & Plan Assessment & Plan narrative: Chest pain. Responded to nitroglycerin but otherwise is somewhat atypical. Patient does have risk in that she has a history of hypertension. Probably more likely GI but we will have to see how she responds. Will admit for observation sees serial troponin EKG in the morning. EKG today showed no evidence of acute disease. If negative can be seen as an outpatient have cardiac workup. Discharge tomorrow. Otherwise workup as appropriate. History of esophageal reflux. I would be more inclined to think this is the possibility but certainly need to make sure she is not cardiac. I would recommend she stay on her omeprazole on a consistent basis and will follow-up with Dr. Rocha is now patient. Hypertension. Seems to be stable. Will continue usual medicines. DVT prophylaxis low risk. GI prophylaxis on omeprazole. Code status full. Disposition. Will follow if troponins change will consider Cardiology consult otherwise discharge home tomorrow. Time Spent With Patient Critical Care time: I spent a total of [] minutes of critical care time on this patient's care today; this time is exclusive of procedural time. Quality VTE Deep Vein Thrombosis/Pulmonary Embolism Present on Admission: No
[2021-12-28] MEDS: TRAZODONE 50 MG TABLET PO (21:05)
[2021-12-28] MEDS: LOSARTAN 50 MG TABLET 100 MG PO (21:18)
[2021-12-28] MEDS: GABAPENTIN 300 MG CAPSULE PO (21:18)
[2021-12-28] MEDS: MAG HYDROX/ALUM/SIMETH 30 ML UDC PO (22:55)
[2021-12-28 23:30] LABS: Troponin I < 0.012 ng/mL (0.01-0.034)
[2021-12-29 00:25] VITALS: BP 118/46; PULSE 64; RESP 18; TEMP 37.3; O2SAT 97
[2021-12-29 04:00] VITALS: BP 138/53; PULSE 64; RESP 17; TEMP 37; O2SAT 96
[2021-12-29] MEDS: ACETAMINOPHEN 325 MG TABLET 650 MG PO (05:33)
[2021-12-29] MEDS: PANTOPRAZOLE DR 40 MG TABLET PO (05:33)
[2021-12-29 07:25] VITALS: BP 145/72; PULSE 65; RESP 17; TEMP 37.2; O2SAT 95
[2021-12-29] MEDS: AMLODIPINE 5 MG TABLET 10 MG PO (10:20)
[2021-12-29] MEDS: buPROPion XL 150 MG TAB 300 MG PO (10:21)
[2021-12-29] MEDS: CHOLECALCIFEROL (VITAMIN D3) 1,000 UNIT TABLET 1000 UNIT PO (10:22)
[2021-12-29] MEDS: GABAPENTIN 300 MG CAPSULE PO (10:23)
--- NOTE | 2021-12-29 11:49 | P.DS_ITS ---
History of Present Illness History of Present Illness Date Patient Seen: 12/29/21 Time Patient Seen: 10:30 Chief complaint: CHEST PAINS Narrative: Patient is a 76-year-old female with a history of reflux but no previous heart disease history who presents with chest pain.? She has a 2 day history of pain which started in her epigastric area and then moved into her chest.? Seem to last several hours and then discontinued.? Some intensity increased.? Did not seem to help with an acids.? Patient has a history of esophagitis and reflux and has been not taking her omeprazole on a regular basis.? She otherwise had not had any diaphoresis nausea vomiting change in bowel movements fevers chills cough chills or other chest pain.? Pain seemed to be mostly in her epigastrium were central chest with some radiation to her back she has had no dizziness lightheadedness or other change.? Patient has a history of bowel obstruction and pancreatitis.? None of which felt like that.? Patient was given nitro in the ER not completely resolved but no other changes.? Patient was admitted for observations for cardiac workup.? Past medical history is significant for hyperlipidemia, hypertension, GERD, depression, Past surgical history subdural hematoma craniotomy 2006, lumbar fusion, x2, right total knee. Family history.? Father with diabetes renal cancer, mother hypertension depression 7 is abuse AAA, brother with diabetes memory issue, sister with traumatic , Social history.? , 3 children.? Retired. Discharge Providers Provider Date of admission: 12/28/21 11:01 Discharge Date: 12/29/21 Primary care physician: Batsheva Rocha MD Discharge provider: Katy Saxena MD Summary Hospital Course Discharge Diagnosis: Atypical chest pain GERD HTN Hospital Course: The pt presented with atypical chest pain. It was alleviated with PPI and Mag- Al Plus suspension. At the time of discharge, the pt denied any current chest pain. Serial troponins were negative, with EKG changes. It was recommended that she continue her Omeprazole for now as an outpatient, which she had self-w eaned from approximately 2 weeks prior. The pt felt safe and stable for discharge home. Her PCP can pursue additional cardiac work up as an outpatient if deemed necessary. Exam Vital Signs (past 8 hours): - 12/29/21 04:00 12/29/21 07:25 Temperature 98.6 F 99.0 F Pulse Rate 64 65 Respiratory Rate 17 17 Blood Pressure 138/53 L 145/72 H Pulse Oximetry 96 95 Oxygen Delivery Method Room Air Oxygen Flow Rate 0 Narrative Exam Narrative: Gen: NAD, sitting comfortably in bed, appears well CV: RRR, no murmurs Resp: clear to auscultation bilaterally Abd: soft, nontender, nondistended, normoactive bowel sounds Ext: no edema Objective Labs Result Diagrams: 12/28/21 07:32 12/28/21 07:32 Labs: Laboratory Results - last 24 hr 12/28/21 12/28/21 16:11 23:00 Troponin I < 0.012 < 0.012 PFSH Medical History Pancreatitis Surgical History History of hysterectomy Social History household members: none Smoking Status: Never smoker alcohol intake: former Discharge Plan Discharge Plan Patient Disposition: Home Discharge orders & Medications Prescriptions: New alum-mag hydroxide-simeth [Mag-Al Plus] 200-200-20 mg/5 mL Suspension 30 ml PO Q6HR PRN (Reason: Dyspepsia) Qty: 500 0RF Continued amlodipine [Norvasc] 5 MG tablet 10 mg PO QDAY Qty: 0 0RF omeprazole 40 mg capsule,delayed release(DR/EC) 40 mg PO DAILY 0RF Label Comments: Take one capsule once a day 1 hour before first meal of the day, for stomach acid suppression. telmisartan 80 mg tablet 80 mg PO BEDTIME 0RF Label Comments: Take 1 by mouth daily gabapentin 300 mg capsule 300 mg PO TID 0RF Label Comments: Take one capsule 3 times a day, for chronic pain Rx Instructions: can take up to 3 pills daily, typically takes as 2 at night and 1 during day. furosemide 20 mg tablet 20 mg PO DAILY 0RF Label Comments: Take 1 tablet by mouth once a day, for fluid retention. albuterol 90 mcg/actuation Aerosol 90 mcg INHALATION PRN PRN (Reason: Shortness Of Breath) 0RF dicyclomine 10 mg capsule 10 mg PO PRN PRN (Reason: Abdominal Discomfort) 0RF Label Comments: Take one tablet every 8 hours, as needed for abdominal cramps. bupropion HCl 300 mg tablet extended release 24 hr 300 mg PO DAILY 0RF cholecalciferol (vitamin D3) [Vitamin D3] 25 mcg (1,000 unit) tablet 25 mcg PO DAILY 0RF Label Comments: Take one by mouth twice a day potassium chloride 20 mEq tablet extended release 20 meq PO DAILY 0RF Label Comments: 1 tablet once a day trazodone 50 mg tablet 50 mg PO BEDTIME 0RF Label Comments: take 1 tablet by mouth at bedtime Follow up/Referrals: Batsheva Rocha MD [Primary Care Provider] - 2 Weeks Diet/Activity/Treatments Diet: Diet as Tolerated and Regular Visit Report/Discharge Packet Instructions: Irritable Bowel Syndrome, DI for Irritable Bowel Syndrome Visit Report Forms: Patient Portal/API, Stroke Signs & Symptoms Discharge Data Primary Care Provider: Batsheva Rocha Attending Provider: Raghav Elizabeth Admit Date/Time: 12/28/21 11:01 Quality VTE Deep Vein Thrombosis/Pulmonary Embolism Present on Admission: No
== END 2021-12-29 11:50 | disposition home or self-care (01) ==
LOC: ED 07:46 → AC 11:02
PROVIDERS: Admitting Provider Family Medicine; Emergency Provider Emergency Medicine; PCP Family Medicine; Referring Provider Emergency Medicine; Visit Provider Family Medicine
DX: R07.9 Chest pain, unspecified (principal); K21.9 Gastro-esophageal reflux disease without esophagitis; I10 Essential (primary) hypertension; F32.A Depression, unspecified; Z20.822 Contact with and (suspected) exposure to COVID-19
CPT/HCPCS: 36415; 71045; 71275; 74174; 80053; 81003; 82550; 83690; 84484; 85025; 87635; 93005; 96361; 96374; 99217; 99284; C9803; G0378; C9113

== ENCOUNTER 2022-05-27 17:09 | Emergency (ER) | payer MEDICARE, SELFPAY ==
[2021-12-28 16:21] VITALS: BMI 30.9
[2022-05-27 17:12] VITALS: BP 147/67; PULSE 90; RESP 16; TEMP 37; O2SAT 96; BMI 30.4
[2022-05-27] MEDS: ONDANSETRON 4 MG ODT SL (17:21)
[2022-05-27 17:48] LABS: COVID19 -Nasal RAPID Negative (Negative)
[2022-05-27 19:21] LABS: Add Manual Diff / Slide Review NO; Basophils Absolute Auto 100 /uL (0-100); Basophils Percent Auto 0.9 % (0-2); Eosinophils Absolute Auto 0 /uL (0-450); Eosinophils Percent Auto 0.5 % (2-4); Hemoglobin 14.4 g/dL (12.0-16.0); Lymphocytes Absolute Auto 1300 /uL (1100-4500); Lymphocytes Percent Auto 15.6 % (25-40); Mean Corpuscular HGB Conc 33.5 % (30-36); Mean Corpuscular Volume 92.7 fL (80-100); Monocytes Absolute Auto 1100 /uL (0-900); Monocytes Percent Auto 13.4 % (3-14); Neutrophils Absolute Auto 5800 /uL (1500-7000); Neutrophils Percent Auto 69.6 % (50-75); Platelet Count 221 X10^3/uL (150-400); Red Blood Cell Count 4.64 X10^6/uL (4.0-5.2); Red Cell Distribution Width 14.1 % (11.6-14.8); White Blood Cell Count 8.3 X10^3/uL (4.5-11.0)
[2022-05-27 19:24] LABS: Alanine Aminotransferase 77 IU/L (<35); Albumin 3.9 g/dL (3.5-5.0); Albumin Globulin Ratio 1.4 (1.0-2.8); Alkaline Phosphatase 80 U/L (38-126); Aspartate Aminotransferase 70 IU/L (14-36); BUN Creatinine Ratio 15.7 (6-22); Bilirubin Total 0.8 mg/dL (0.2-1.3); Blood Urea Nitrogen 17 mg/dL (7-17); Calcium 8.7 mg/dL (8.4-10.2); Carbon Dioxide 22 mmol/L (22-32); Chloride 104 mmol/L (98-107); Estimated Glomerular Filt Rate 53 mL/min (>60); Globulin 2.8 g/dL (1.7-4.1); Glucose 143 mg/dL (80-110); HEMOLYSIS 15 (0-50); Lipase 255 U/L (23-300); Potassium 4.1 mmol/L (3.4-5.1); Sodium 134 mmol/L (137-145); Total Protein 6.7 g/dL (6.3-8.2)
--- NOTE | 2022-05-27 20:58 | ED_ITS ---
HPI - Nausea/Vomiting/Diarrhea General Chief complaint: Nausea/Vomiting/Diarrhea Stated complaint: dehydrated/unable to eat x4 Time Seen by Provider: 05/27/22 18:09 Mode of arrival: Family Vehicle History of Present Illness HPI Narrative: 77F nonsmoker with history of HTN presents with 4 days of diarrhea, N/V, dizziness, weakness, and poor appetite. She's felt feverish and generally unwell. She denies any bad food or recent travel. She denies recent antibiotic use. She has been taking antidiarrheals with minimal relief and states she has countless loose stools per day. She denies any obvious blood. Related Data Home Medications Medication Instructions Recorded Confirmed amlodipine 5 mg tablet (Norvasc) 10 mg PO QDAY ##0 06/29/11 12/28/21 albuterol 90 mcg/actuation aerosol 90 mcg inhalation PRN PRN 05/11/21 12/28/21 inhaler Shortness Of Breath bupropion HCl 300 mg 24 hr tablet, 300 mg PO DAILY 05/11/21 12/28/21 extended release cholecalciferol (vitamin D3) 25 25 mcg PO DAILY 05/11/21 12/28/21 mcg (1,000 unit) tablet (Vitamin D3) dicyclomine 10 mg capsule 10 mg PO PRN PRN Abdominal 05/11/21 12/28/21 Discomfort furosemide 20 mg tablet 20 mg PO DAILY 05/11/21 12/28/21 gabapentin 300 mg capsule 300 mg PO TID 05/11/21 12/28/21 omeprazole 40 mg capsule,delayed 40 mg PO DAILY 05/11/21 12/28/21 release potassium chloride 20 mEq 20 meq PO DAILY 05/11/21 12/28/21 tablet,extended release telmisartan 80 mg tablet 80 mg PO BEDTIME 05/11/21 12/28/21 trazodone 50 mg tablet 50 mg PO BEDTIME 12/28/21 12/28/21 Previous Rx's Medication Instructions Recorded aluminum-mag hydroxide-simethicone 30 ml PO Q6HR PRN Dyspepsia #500 mL 12/29/21 200 mg-200 mg-20 mg/5 mL oral susp (Mag-Al Plus) ciprofloxacin HCl 500 mg tablet 500 mg PO BID 7 days #14 tabs 05/28/22 hyoscyamine sulfate 0.125 mg tablet 0.125 mg PO BID-QID PRN dyspepsia 05/28/22 #20 tabs Allergies Allergy/AdvReac Type Severity Reaction Status Date / Time Penicillins Allergy Severe Rash Verified 05/27/22 17:16 Sulfa (Sulfonamide Allergy Severe Rash Verified 05/27/22 17:16 Antibiotics) Review of Systems Review of Systems Narrative: GENERAL: See HPI HEENT: Denies sinus pain, ear pain, sore throat, difficulty swallowing, dizziness. RESPIRATORY: Denies dyspnea, cough, wheezing, hemoptysis, sputum. CARDIOVASCULAR: Denies chest pain, palpitations, orthopnea, edema, GASTROINTESTINAL: See HPI : Denies dysuria, frequency, incontinence, hematuria, urinary retention. MUSCULOSKELETAL: denies weakness, joint pain, or bony pain SKIN: Denies rash, skin lesions, or other NEUROLOGIC: Denies weakness, headache, numbness, change in speech, confusion, seizures, incoordination. PSYCHIATRIC: No concerning psychosocial issues. 12 point review of systems is negative except for those stated above Patient History Medical History Pancreatitis Surgical History History of hysterectomy Social History household members: none Smoking Status: Never smoker alcohol intake: former Smoking Status: Never smoker alcohol intake frequency: holidays/special occasions only Substance Use Type: does not use Exam Narrative Exam Narrative: GENERAL: [77] year old patient appears stated age. Well-developed patient, in mild distress. HEAD: Atraumatic. Normocephalic. EYES: Pupils equal round and reactive. Extraocular motions intact. No scleral icterus. No injection or drainage. ENT: Dry mucous membranes Nose without bleeding, purulent drainage. Throat without erythema, tonsillar hypertrophy or exudate. Airway patent. NECK: Trachea midline. Non tender CARDIOVASCULAR: Regular rate and rhythm without murmurs, gallops, or rubs. RESPIRATORY: Clear to auscultation. Breath sounds equal bilaterally. No wheezes, rales, or rhonchi. GASTROINTESTINAL: Abdomen soft, non-tender, nondistended. Increased bowel sounds EXTREMITIES: No edema or joint tenderness. BACK: Nontender without deformity or crepitance. No flank tenderness. NEURO: AOx3. SKIN: No rash or erythema of visible areas Initial Vital Signs Initial Vital Signs: Vital Signs Temperature 98.6 F 05/27/22 17:12 Pulse Rate 90 05/27/22 17:12 Respiratory Rate 16 05/27/22 17:12 Blood Pressure 147/67 H 05/27/22 17:12 Pulse Oximetry 96 05/27/22 17:12 Oxygen Delivery Method 05/27/22 17:12 Course Orders Ordered: ED Orders 05/27/22 23:41 GI Panel (Film Array) Stat Discontinued Medications Sodium Chloride (Normal Saline 0.9%) 1,000 mls @ 1,000 mls/hr IV BOLUS ONE Stop: 05/27/22 21:59 Last Infusion: 05/27/22 23:00 Dose: 0 mls/hr Documented By: Admin: 05/27/22 21:39 Dose: 1,000 mls/hr Documented By: BERTA Sodium Chloride (Normal Saline 0.9%) 1,000 mls @ 1,000 mls/hr IV BOLUS ONE Stop: 05/27/22 23:54 Last Infusion: 05/28/22 00:51 Dose: 0 mls/hr Documented By: Admin: 05/27/22 23:12 Dose: 1,000 mls/hr Documented By: BERTA Ondansetron HCl (Ondansetron 4 Mg Odt) 4 mg SL NOW ONE Stop: 05/27/22 17:18 Last Admin: 05/27/22 17:21 Dose: 4 mg Documented By: [facility] Ondansetron HCl (Ondansetron 4 Mg Odt Prepack) 1 bottle MISC SEEINSTR ONE Stop: 05/28/22 01:47 Last Admin: 05/28/22 01:58 Dose: 1 bottle Documented By: BERTA Pantoprazole Sodium (Pantoprazole 40 Mg Vial) 40 mg IV NOW ONE Stop: 05/27/22 22:56 Last Admin: 05/27/22 23:12 Dose: 40 mg Documented By: BERTA Reevaluation(s) Reevaluation #1: Patient with significant improvement after above-stated therapies though admittedly when she has become more appropriately hydrated her bowel movements have increased Vital Signs Vital signs: Vital Signs - 8 hr 05/27/22 23:42 05/27/22 23:43 08/01/22 23:43 Pulse Rate 79 79 Blood Pressure 144/67 H Pulse Oximetry 97 97 05/28/22 00:00 05/28/22 00:01 05/28/22 00:01 Pulse Rate 74 75 Blood Pressure 158/66 H Pulse Oximetry 95 95 05/28/22 00:30 05/28/22 00:31 05/28/22 00:31 Pulse Rate 76 75 Blood Pressure 155/67 H Pulse Oximetry 96 95 05/28/22 02:37 05/28/22 02:38 05/28/22 02:38 Pulse Rate 75 Blood Pressure 173/74 H Pulse Oximetry 96 96 MDM - Nausea/Vomiting/Diarrhea Lab Data Result diagrams: 05/27/22 18:45 05/27/22 18:45 Labs: Lab Results 05/27/22 05/27/22 05/27/22 Range/Units 17:18 18:45 18:45 WBC 8.3 (4.5-11.0) X10^3/uL RBC 4.64 (4.0-5.2) X10^6/uL Hgb 14.4 (12.0-16.0) g/dL Hct 43.0 (36-46) % MCV 92.7 (80-100) fL MCH 31.0 (26-34) PG MCHC 33.5 (30-36) % RDW 14.1 (11.6-14.8) % Plt Count 221 (150-400) X10^3/uL Neut % (Auto) 69.6 (50-75) % Lymph % (Auto) 15.6 L (25-40) % [place] % (Auto) 13.4 (3-14) % Eos % (Auto) 0.5 L (2-4) % Baso % (Auto) 0.9 (0-2) % Neut # (Auto) 5800 (1229-3636) /uL Lymph # (Auto) 1300 (4821-4282) /uL [place] # (Auto) 1100 H (0-900) /uL Eos # (Auto) 0 (0-450) /uL Baso # (Auto) 100 (0-100) /uL Sodium 134 L (137-145) mmol/L Potassium 4.1 (3.4-5.1) mmol/L Chloride 104 (98-107) mmol/L Carbon Dioxide 22 (22-32) mmol/L BUN 17 (7-17) mg/dL Creatinine 1.08 H (0.52-1.04) mg/dL Estimated GFR 53 L (>60) mL/min BUN/Creatinine Ratio 15.7 (6-22) Glucose 143 H (80-110) mg/dL Calcium 8.7 (8.4-10.2) mg/dL Total Bilirubin 0.8 (0.2-1.3) mg/dL AST 70 H (14-36) IU/L ALT 77 H (<35) IU/L Alkaline Phosphatase 80 (38-126) U/L Total Protein 6.7 (6.3-8.2) g/dL Albumin 3.9 (3.5-5.0) g/dL Globulin 2.8 (1.7-4.1) g/dL Albumin/Globulin Ratio 1.4 (1.0-2.8) Lipase 255 (23-300) U/L Urine RBC (0-5/HPF) Urine WBC (0-5/HPF) Amorphous Sediment Urine Bacteria (None) Hyaline Casts (None) Urine Mucus (Negative) Ur Culture Indicated? Stl C. cayetanensis PCR (Not Detect) Stool Rotavirus (PCR) (Not Detect) Stool Adenovirus (PCR) (Not Detect) Stool Astrovirus (PCR) (Not Detect) Stool Cryptosporidium PCR (Not Detect) Stl E.coli Shiga Tox PCR (Not Detect) St Sh/Enteroin Ecoli PCR (Not Detect) Stool E coli O157 PCR Stl Enterotoxigenic E PCR (Not Detect) Stool EPEC (PCR) (Not Detect) Stl E. histolytica PCR (Not Detect) Stool Giardia Lamblia PCR (Not Detect) Stool Sapovirus (PCR) (Not Detect) Stl P. shigelloides PCR (Not Detect) St Y.enterocolitica PCR (Not Detect) Stool Vibrio (PCR) (Not Detect) Stl Vibrio cholerae PCR (Not Detect) Stl Enteroaggr Ecoli PCR (Not Detect) Stl Norovirus GI/GII PCR (Not Detect) Campylobacter (PCR) (Not Detect) C. difficile Tox (PCR) (Not Detect) SARS-CoV-2 (PCR) Negative (Negative) Salmonella (PCR) (Not Detect) 05/27/22 05/27/22 Range/Units 20:20 23:41 WBC (4.5-11.0) X10^3/uL RBC (4.0-5.2) X10^6/uL Hgb (12.0-16.0) g/dL Hct (36-46) % MCV (80-100) fL MCH (26-34) PG MCHC (30-36) % RDW (11.6-14.8) % Plt Count (150-400) X10^3/uL Neut % (Auto) (50-75) % Lymph % (Auto) (25-40) % [place] % (Auto) (3-14) % Eos % (Auto) (2-4) % Baso % (Auto) (0-2) % Neut # (Auto) (6247-3426) /uL Lymph # (Auto) (6282-9502) /uL [place] # (Auto) (0-900) /uL Eos # (Auto) (0-450) /uL Baso # (Auto) (0-100) /uL Sodium (137-145) mmol/L Potassium (3.4-5.1) mmol/L Chloride (98-107) mmol/L Carbon Dioxide (22-32) mmol/L BUN (7-17) mg/dL Creatinine (0.52-1.04) mg/dL Estimated GFR (>60) mL/min BUN/Creatinine Ratio (6-22) Glucose (80-110) mg/dL Calcium (8.4-10.2) mg/dL Total Bilirubin (0.2-1.3) mg/dL AST (14-36) IU/L ALT (<35) IU/L Alkaline Phosphatase (38-126) U/L Total Protein (6.3-8.2) g/dL Albumin (3.5-5.0) g/dL Globulin (1.7-4.1) g/dL Albumin/Globulin Ratio (1.0-2.8) Lipase (23-300) U/L Urine RBC None seen (0-5/HPF) Urine WBC None seen (0-5/HPF) Amorphous Sediment 1+ Urine Bacteria None seen (None) Hyaline Casts 1-5/lpf (None) Urine Mucus 2+ H (Negative) Ur Culture Indicated? Cult not indicated Stl C. cayetanensis PCR Not detected (Not Detect) Stool Rotavirus (PCR) Not detected (Not Detect) Stool Adenovirus (PCR) Not detected (Not Detect) Stool Astrovirus (PCR) Not detected (Not Detect) Stool Cryptosporidium PCR Not detected (Not Detect) Stl E.coli Shiga Tox PCR Not detected (Not Detect) St Sh/Enteroin Ecoli PCR Not detected (Not Detect) Stool E coli O157 PCR Not Reportable Stl Enterotoxigenic E PCR Not detected (Not Detect) Stool EPEC (PCR) Not detected (Not Detect) Stl E. histolytica PCR Not detected (Not Detect) Stool Giardia Lamblia PCR Not detected (Not Detect) Stool Sapovirus (PCR) Not detected (Not Detect) Stl P. shigelloides PCR Not detected (Not Detect) St Y.enterocolitica PCR Not detected (Not Detect) Stool Vibrio (PCR) Not detected (Not Detect) Stl Vibrio cholerae PCR Not detected (Not Detect) Stl Enteroaggr Ecoli PCR Not detected (Not Detect) Stl Norovirus GI/GII PCR Not detected (Not Detect) Campylobacter (PCR) Not detected (Not Detect) C. difficile Tox (PCR) Not detected (Not Detect) SARS-CoV-2 (PCR) (Negative) Salmonella (PCR) Detected H (Not Detect) Urine Dip Bedside Urine Glucose Negative Bedside Urine Bilirubin - Negative Bedside Urine Ketone +/- 5 Urine Specific [place] 1.020 Bedside Urine Occult Blood +/- Bedside Urine pH 6.0 Bedside Urine Protein +/- 15 Bedside Urine Urobilinogen - Negative Bedside Urine Nitrite - Negative Bedside Urine Leukocytes - Negative Esterase MDM Narrative Medical decision making narrative: Patient with severe symptoms consistent with Salmonella enteritis is appropriate for antibiotic use. She has significant improvement in symptoms after above- stated therapies and is tolerating orals without difficulty. No indication for hospitalization at this time. Return precautions discussed and questions answered to her apparent satisfaction Discharge Plan Departure Patient Disposition: Home Clinical Impression: Salmonella infection Instructions: DI for Dehydration -- Adult, DI for Vomiting -- Adult Activity Restrictions/Additional Instructions: *You have been diagnosed with [diarrhea and vomiting due to Salmonella] *What to do: *Please continue to take your regular medications as directed. [x ] New medication prescriptions sent to your pharmacy: [[facility] ] *Please follow up with your primary care provider in 2-3 days, call for an a ppointment. Let them know you were seen in the Emergency Department and that we ask that you be seen in follow up. We will electronically transmit a record of today's note if your PCP is in our system *Please consider a clear liquid diet for the next 24-48 hours and then slowly advance to regular as tolerated. Also, try to avoid alcohol, nicotine, caffeine, spicy, acidic or fatty foods as this may worsen your symptoms *If you do not have a primary care provider please contact the [facility] Resource line at [phone]. They will ask some questions about your medical history and help get you set up with a doctor in the community. *Return to Emergency Department if you should have any new, worsening or concerning symptoms, such as [fever greater than 101 F, shaking chills, worseni ng pain, persistent vomiting or other bothersome symptoms] Prescriptions: New ciprofloxacin HCl 500 mg tablet 500 mg PO BID 7 Days Qty: 14 0RF hyoscyamine sulfate 0.125 mg tablet 0.125 mg PO BID-QID PRN (Reason: dyspepsia) Qty: 20 0RF No Action amlodipine [Norvasc] 5 MG tablet 10 mg PO QDAY Qty: 0 omeprazole 40 mg capsule,delayed release(DR/EC) 40 mg PO DAILY Label Comments: Take one capsule once a day 1 hour before first meal of the day, for stomach acid suppression. telmisartan 80 mg tablet 80 mg PO BEDTIME Label Comments: Take 1 by mouth daily gabapentin 300 mg capsule 300 mg PO TID Label Comments: Take one capsule 3 times a day, for chronic pain Rx Instructions: can take up to 3 pills daily, typically takes as 2 at night and 1 during day. furosemide 20 mg tablet 20 mg PO DAILY Label Comments: Take 1 tablet by mouth once a day, for fluid retention. albuterol 90 mcg/actuation Aerosol 90 mcg INHALATION PRN PRN (Reason: Shortness Of Breath) dicyclomine 10 mg capsule 10 mg PO PRN PRN (Reason: Abdominal Discomfort) Label Comments: Take one tablet every 8 hours, as needed for abdominal cramps. bupropion HCl 300 mg tablet extended release 24 hr 300 mg PO DAILY cholecalciferol (vitamin D3) [Vitamin D3] 25 mcg (1,000 unit) tablet 25 mcg PO DAILY Label Comments: Take one by mouth twice a day potassium chloride 20 mEq tablet extended release 20 meq PO DAILY Label Comments: 1 tablet once a day trazodone 50 mg tablet 50 mg PO BEDTIME Label Comments: take 1 tablet by mouth at bedtime alum-mag hydroxide-simeth [Mag-Al Plus] 200-200-20 mg/5 mL Suspension 30 ml PO Q6HR PRN (Reason: Dyspepsia) Qty: 500 0RF Referrals: Batsheva Rocha MD [Primary Care Provider] - Visit Report Forms: Patient Portal/API
[2022-05-27 21:02] LABS: RBC Urine None Seen (0-5/HPF); WBC Urine None Seen (0-5/HPF)
[2022-05-27 21:03] LABS: Amorphous Sediment Urine 1+; Bacteria Urine None Seen; Culture Indicated Urine Cult Not Indicated; Hyaline Casts Urine 1-5/LPF; Mucus Urine 2+ (Negative)
[2022-05-27] MEDS: SODIUM CHLORIDE 0.9% 1,000 ML 1000 ML IV ×2 (21:39→23:12)
[2022-05-27 22:36] VITALS: BP 141/79
[2022-05-27] MEDS: PANTOPRAZOLE 40 MG VIAL IV (23:12)
[2022-05-27 23:42] VITALS: PULSE 79; O2SAT 97
[2022-05-27 23:43] VITALS: BP 144/67; PULSE 79; O2SAT 97
[2022-05-28] VITALS: PULSE 74; O2SAT 95
[2022-05-28 00:01] VITALS: BP 158/66; PULSE 75; O2SAT 95
[2022-05-28 00:30] VITALS: PULSE 76; O2SAT 96
[2022-05-28 00:31] VITALS: BP 155/67; PULSE 75; O2SAT 95
[2022-05-28 01:15] LABS: Campylobacter Not Detected (Not Detect); Clostridium difficile toxin AB Not Detected (Not Detect); Plesiomonsa shigelloides Not Detected (Not Detect)
[2022-05-28 01:16] LABS: Adenovirus F 40/41 Not Detected (Not Detect); Astrovirus Not Detected (Not Detect); Cryptosporidium Not Detected (Not Detect); Cyclospora cayetanensis Not Detected (Not Detect); Entamoeba histolytica Not Detected (Not Detect); Enteroaggregative E.coli Not Detected (Not Detect); Enteropathogenic E.coli Not Detected (Not Detect); Enterotoxigenic E.coli It/st Not Detected (Not Detect); Giardia lamblia Not Detected (Not Detect); Norovirus GI/GII Not Detected (Not Detect); Rotavirus A Not Detected (Not Detect); Sapovirus Not Detected (Not Detect); Shiga-like toxin-prod E.coli Not Detected (Not Detect); Shigella/Enteroinvasive E.coli Not Detected (Not Detect); Vibrio Not Detected (Not Detect); Vibrio cholerae Not Detected (Not Detect); Yersinia enterocolitica Not Detected (Not Detect)
[2022-05-28] MEDS: ONDANSETRON 4 MG ODT PREPACK 1 BOTTLE MISC (01:58)
[2022-05-28 02:37] VITALS: O2SAT 96
[2022-05-28 02:38] VITALS: BP 173/74; PULSE 75; O2SAT 96
[2022-05-28 07:04] LABS: Salmonella Detected (Not Detect)
[2022-05-29 00:27] LABS: HBsAg Screen Negative (Negative); Hepatitis A Antibody IgM Negative (Negative); Hepatitis B Core Antibody IgM Negative (Negative); Hepatitis C Antibody <0.1 s/co ratio (0.0-0.9)
== END 2022-05-28 02:45 | disposition home or self-care (01) ==
PROVIDERS: Emergency Medicine; Emergency Provider Emergency Medicine; PCP Family Medicine
DX: A02.9 Salmonella infection, unspecified (principal); Z20.822 Contact with and (suspected) exposure to COVID-19
CPT/HCPCS: 36415; 80053; 80074; 81003; 81015; 83690; 85025; 87507; 87635; 93005; 96361; 96374; 99284; C9803; C9113

== ENCOUNTER → 2022-09-04 13:23 | Outpatient (CLI) | payer MEDICARE, SELFPAY ==
[2021-12-28 16:21] VITALS: BMI 30.9
--- NOTE | 2022-09-04 | DI.MG.S_ITS ---
BILATERAL DIGITAL DIAGNOSTIC MAMMOGRAM 3D/2D WITH AUGMENTATION: 09/04/2022 CLINICAL: Short term follow up of the right breast, due for bilateral imaging. Comparison is made to exams dated: 11/23/2018 mammogram, 04/30/2018 mammogram, 11/06/2017 mammogram, 11/06/2017 ultrasound, and 09/11/2016 mammogram - outside. Both breasts are heterogeneously dense, which may obscure small masses (category c / 51-75% glandular tissue). Bilateral breast implants are stable. No significant masses, calcifications, or other findings are seen in either breast. There has been no significant interval change. IMPRESSION: BENIGN There is no mammographic evidence of malignancy. A 1 year screening mammogram is recommended. Based on the Tyrer Cuzick model (a risk assessment model) the patient's lifetime risk is 5.6% and her 10 year risk is 0.0%. According to the ACR, ACS, and NCCN guidelines, an annual breast MRI exam along with mammogram is recommended if the patient's lifetime risk is 20% or greater. This exam was interpreted at Station ID: [id number]. NOTE: For mammograms, a report in lay terms will be sent to the patient. Approximately 15% of breast malignancies will not be visualized mammographically. In the management of a palpable breast mass, a negative mammogram must not discourage biopsy of a clinically suspicious lesion. Electronically Signed By: Marc lyle/maxi:09/04/2022 14:28:09 letter sent: Normal Exam ACR BI-RADS Category 2: Benign Finding(s) 3342F
== END ==
PROVIDERS: PCP Family Medicine; Referring Provider Family Medicine; Visit Provider Family Medicine
DX: R92.8 Other abnormal and inconclusive findings on diagnostic imaging of breast (principal)
CPT/HCPCS: 77066; G0279

== ENCOUNTER → 2023-07-14 13:24 | Outpatient (CLI) | payer MEDICARE, SELFPAY ==
[2021-12-28 16:21] VITALS: BMI 30.9
--- NOTE | 2023-07-14 13:27 | DI.RAD.S_ITS ---
PROCEDURE: XR LUMBAR SPINE 2-3V INDICATIONS: acute on chronic back pain, lumbar fusion hx TECHNIQUE: 3 views of the lumbar spine were acquired. COMPARISON: None. FINDINGS: Bones: 5 [id number] vertebrae are present. Multilevel degenerative changes. Postoperative changes at L3-4 of pedicular screw and seven fixation. Severe disc disease at T12-L1 with endplate sclerosis and osteophytes. No vertebral body compression fractures. No suspicious bony lesions. Soft tissues: Overlying bowel gas pattern is normal. The aorta has atherosclerotic calcifications. No suspicious soft tissue calcifications. IMPRESSION: 1. No acute abnormality. 2. Multilevel degenerative changes and degenerative disc disease as detailed above. Dictated by: Tyron Castro M.D. on 07/14/2023 at 15:26 Approved by: Tyron Castro M.D. on 07/14/2023 at 15:27
--- NOTE | 2023-07-14 13:27 | DI.RAD.S_ITS ---
PROCEDURE: XR HIP W PEL IF DONE LT 2V INDICATIONS: low back pain/buttock pain, limp TECHNIQUE: AP pelvis with lateral view(s) of the left hip(s). COMPARISON: None. FINDINGS: Bones: No fractures or dislocations. Pelvic ring appears intact. No suspicious bony lesions. Degenerative changes of both hips. Soft tissues: The visualized bowel gas pattern is normal. No suspicious soft tissue calcifications. IMPRESSION: Degenerative changes of both hips. Dictated by: Tyron Castro M.D. on 07/14/2023 at 15:25 Approved by: Tyron Castro M.D. on 07/14/2023 at 15:26
== END ==
PROVIDERS: PCP Family Medicine; Referring Provider Student in an Organized Health Care Education/Training Program; Visit Provider Student in an Organized Health Care Education/Training Program
DX: M51.35 Other intervertebral disc degeneration, thoracolumbar region (principal); M47.816 Spondylosis without myelopathy or radiculopathy, lumbar region; M53.3 Sacrococcygeal disorders, not elsewhere classified; M54.50 Low back pain, unspecified; R26.89 Other abnormalities of gait and mobility
CPT/HCPCS: 72100; 73502

== ENCOUNTER 2023-07-15 10:00 | Emergency (ER) | payer MEDICARE, SELFPAY ==
[2021-12-28 16:21] VITALS: BMI 30.9
[2023-07-15 10:20] VITALS: BP 178/81; PULSE 68; RESP 16; TEMP 36.6; O2SAT 98
[2023-07-15 10:40] VITALS: BP 170/67; PULSE 67; RESP 18; TEMP 36.6; O2SAT 96; BMI 37.1
--- NOTE | 2023-07-15 10:44 | ED.BACK ---
HPI - Back Pain/Injury General Chief Complaint: Back Pain/Injury Stated Complaint: Low back pain T-1 Time Seen by Provider: 07/15/23 10:44 Source: patient and EMS History of Present Illness HPI Narrative: Patient is a 78-year-old female history of acid reflux presenting today with left lower lumbar pain. She reports that she was digging in rock soil with a shovel a few days ago she was trying to get some plants into the ground. Since then she has had ongoing left lower back pain. She does have a prescription for gabapentin which she says she is been taking. She went to a walk-in clinic yesterday she was prescribed lidocaine patches and a muscle relaxer. She reports that she took a muscle relaxer this morning and last night she actually was able to sleep. However this morning when she woke up she was very tearful cart called her son she was unable to really move or get around. She received 100 mcg of fentanyl with EMS now feels like her pain is better. No numbness or tingling down her legs no changes in bowel or bladder habits in fact she is reporting that she has to use the restroom. Related Data Home Medications Medication Instructions Recorded Confirmed amlodipine 5 mg tablet (Norvasc) 10 mg PO QDAY ##0 06/29/11 07/14/23 albuterol 90 mcg/actuation aerosol 90 mcg inhalation PRN PRN 05/11/21 07/14/23 inhaler Shortness Of Breath bupropion HCl 300 mg 24 hr tablet, 300 mg PO DAILY 05/11/21 07/14/23 extended release cholecalciferol (vitamin D3) 25 25 mcg PO DAILY 05/11/21 07/14/23 mcg (1,000 unit) tablet (Vitamin D3) dicyclomine 10 mg capsule 10 mg PO PRN PRN Abdominal 05/11/21 07/14/23 Discomfort furosemide 20 mg tablet 20 mg PO DAILY 05/11/21 07/14/23 gabapentin 300 mg capsule 300 mg PO TID 05/11/21 07/14/23 omeprazole 40 mg capsule,delayed 40 mg PO DAILY 05/11/21 07/14/23 release potassium chloride 20 mEq 20 meq PO DAILY 05/11/21 07/14/23 tablet,extended release telmisartan 80 mg tablet 80 mg PO BEDTIME 05/11/21 07/14/23 trazodone 50 mg tablet 50 mg PO BEDTIME 12/28/21 07/14/23 doxepin 10 mg capsule 10 mg PO ONCE PM 07/14/23 07/14/23 lorazepam 0.5 mg tablet 0.25 mg PO BID PRN anxiety 07/14/23 07/14/23 Previous Rx's Medication Instructions Recorded aluminum-mag hydroxide-simethicone 30 ml PO Q6HR PRN Dyspepsia #500 mL 12/29/21 200 mg-200 mg-20 mg/5 mL oral susp (Mag-Al Plus) hyoscyamine sulfate 0.125 mg tablet 0.125 mg PO BID-QID PRN dyspepsia 05/28/22 #20 tabs baclofen 10 mg tablet 10 mg PO TID 10 days #30 tabs 07/14/23 lidocaine 5 % topical patch 1 patch topical DAILY 15 days #15 07/14/23 ea hydrocodone 5 mg-acetaminophen 325 1 tab PO Q6H PRN pain #14 tabs 07/15/23 mg tablet Allergies Allergy/AdvReac Type Severity Reaction Status Date / Time Penicillins Allergy Severe Rash Verified 07/14/23 12:49 Sulfa (Sulfonamide Allergy Severe Rash Verified 07/14/23 12:49 Antibiotics) Review of Systems Review of Systems ROS Unobtainable: All systems reviewed & are unremarkable except as noted in HPI and below Patient History Medical History Pancreatitis Surgical History History of hysterectomy Social History household members: none Smoking Status: Never smoker alcohol intake: former Smoking Status: Never smoker alcohol intake frequency: holidays/special occasions only Substance Use Type: does not use Exam Initial Vital Signs Initial Vital Signs: Vital Signs Temperature 97.8 F 07/15/23 10:20 Pulse Rate 68 07/15/23 10:20 Respiratory Rate 16 07/15/23 10:20 Blood Pressure 178/81 H 07/15/23 10:20 Pulse Oximetry 98 07/15/23 10:20 Oxygen Delivery Method Room Air 07/15/23 10:20 GENERAL: Alert pleasant 78-year-old female and in no acute distress. HEENT: Head atraumatic,EOMI, pupils reactive, face symmetric, moist mucous membranes CARDIOVASCULAR: Regular rate and rhythm without murmurs, rubs or gallops. RESPIRATORY: Breath sounds equal bilaterally, no wheezes rales or rhonchi. ABDOMEN: Soft, nontender. Normoactive bowel sounds all 4 quadrants. No guarding or rebound. BACK: No vertebral tenderness or step-offs left lower lumbar pain tender to touch EXTREMITIES: Normal range of motion, no clubbing or edema. Neurovascularly intact Left shoulder is very positional in where it is painful. NEUROLOGICAL: Alert and oriented x4.Normal gait and speech. Cranial nerves II through XII grossly intact. Able to lift both legs off bed SKIN: Warm, dry, no laceration, no petechiae, no rashes or lesions. Course Orders Ordered: Discontinued Medications Hydrocodone Bitart/Acetaminophen (Hydrocodone/Acet 5/325 Tablet) 1 tab PO NOW ONE Stop: 07/15/23 11:03 Last Admin: 07/15/23 11:22 Dose: 1 tab Documented By: SRINI Gabapentin (Gabapentin 300 Mg Capsule) 300 mg PO NOW ONE Stop: 07/15/23 11:03 Last Admin: 07/15/23 11:22 Dose: 300 mg Documented By: AMV Vital Signs Vital signs: Vital Signs - 8 hr 07/15/23 12:47 Pulse Rate 70 Respiratory Rate 20 Blood Pressure 176/77 H Pulse Oximetry 96 Oxygen Delivery Method Room Air MDM - Back Pain/Injury Lab Data Labs: Urine Dip Bedside Urine Glucose Negative Bedside Urine Bilirubin - Negative Bedside Urine Ketone - Negative Urine Specific [place] 1.000 Bedside Urine Occult Blood - Negative Bedside Urine pH 7.5 Bedside Urine Protein - Negative Bedside Urine Urobilinogen - Negative Bedside Urine Nitrite - Negative Bedside Urine Leukocytes - Negative Esterase MDM Narrative Medical decision making narrative: Patient is 78 years old presenting today with left lower back pain and left shoulder pain. This all started after significant labor and tense work in the yd. She is not able to take NSAIDs secondary to history of gastric ulcer. Gabapentin does seem to help and the muscle relaxers she received yesterday was also help fall however pain this morning was quite out of proportion. She actually was able to get up and walk, with some assistance. It was obviously painful but she was able to do it. At this time she had x-rays done yesterday which did show some multi-level degenerative disc disease. No clinical symptoms of cauda equina or dissection. It is all reproducible to palpation and movement. At this time reasonable to discharge home with proper pain control. Discharge Plan Departure Patient Disposition: Home Clinical Impression: Back pain Instructions: DI for Low Back Pain Activity Restrictions/Additional Instructions: *You have been diagnosed with arthritis in back, back strain and spasm *What to do: At this time try a heating pad when he would a 30 minutes at a time. Light stretches light activity no strenuous activity no shoveling no heavy lifting *Continue to take medications as directed --> [facility] Tylenol 650 mg every 6 hours if needed for mild to moderate pain Gabapentin 300 mg 3 times a day if needed for pain [place] 0.5-1 tablet every 6 hours if needed for severe pain (careful when combining with your muscle relaxer can make you very drowsy) *Follow up with your primary care provider in 2-3 days or call [phone] *Return to ER if you should have increasing pain numbness tingling weakness changes in bowel or bladder habits or any new, worsening or concerning symptoms CONTROLLED SUBSTANCE DISCHARGE (Narcotoic/benzodiazepine/Flexeril/Phenergan) 1. You have been prescribed narcotic medications, it does have acetaminophen/Tylenol/paracetamol in it, DO NOT TAKE MORE THAN 4,00mg in 24 hours of Tylenol. TRAMADOL DOES NOT CONTAIN TYLENOL 2. Please understand that we cannot provide further refills of narcotics, benzodiazepines or controlled substances through the ED and her pain management will need to be through your provider. 3. While on these medications you cannot drive or operate heavy machinery. 4. You cannot sign legal documents or perform any duties such as this. 5. As long as you're taking opiate pain medications he should also be taking a stool softener such as Colace, Dulcolax, MiraLAX or prune juice, to help avoid constipation. Prescriptions: New hydrocodone-acetaminophen 5-325 mg tablet 1 tab PO Q6H PRN (Reason: pain) Qty: 14 0RF No Action lorazepam 0.5 mg tablet 0.25 mg PO BID PRN (Reason: anxiety) doxepin 10 mg capsule 10 mg PO ONCE PM baclofen 10 mg tablet 10 mg PO TID 10 Days Qty: 30 0RF lidocaine 5 % adhesive patch,medicated 1 patch topical DAILY 15 Days Qty: 15 1RF Rx Instructions: leave on most painful area for up to 12 hrs amlodipine [Norvasc] 5 MG tablet 10 mg PO QDAY Qty: 0 omeprazole 40 mg capsule,delayed release(DR/EC) 40 mg PO DAILY Patient Comments: Take one capsule once a day 1 hour before first meal of the day, for stomach acid suppression. telmisartan 80 mg tablet 80 mg PO BEDTIME Patient Comments: Take 1 by mouth daily gabapentin 300 mg capsule 300 mg PO TID Patient Comments: Take one capsule 3 times a day, for chronic pain Rx Instructions: can take up to 3 pills daily, typically takes as 2 at night and 1 during day. furosemide 20 mg tablet 20 mg PO DAILY Patient Comments: Take 1 tablet by mouth once a day, for fluid retention. albuterol 90 mcg/actuation Aerosol 90 mcg INHALATION PRN PRN (Reason: Shortness Of Breath) dicyclomine 10 mg capsule 10 mg PO PRN PRN (Reason: Abdominal Discomfort) Patient Comments: Take one tablet every 8 hours, as needed for abdominal cramps. bupropion HCl 300 mg tablet extended release 24 hr 300 mg PO DAILY cholecalciferol (vitamin D3) [Vitamin D3] 25 mcg (1,000 unit) tablet 25 mcg PO DAILY Patient Comments: Take one by mouth twice a day potassium chloride 20 mEq tablet extended release 20 meq PO DAILY Patient Comments: 1 tablet once a day trazodone 50 mg tablet 50 mg PO BEDTIME Patient Comments: take 1 tablet by mouth at bedtime alum-mag hydroxide-simeth [Mag-Al Plus] 200-200-20 mg/5 mL Suspension 30 ml PO Q6HR PRN (Reason: Dyspepsia) Qty: 500 0RF hyoscyamine sulfate 0.125 mg tablet 0.125 mg PO BID-QID PRN (Reason: dyspepsia) Qty: 20 0RF Referrals: Batsheva Rocha MD [Primary Care Provider] - Stand Alone Forms: Patient Portal/API
[2023-07-15] MEDS: HYDROCODONE/ACET 5/325 TABLET 1 TAB PO (11:22)
[2023-07-15] MEDS: GABAPENTIN 300 MG CAPSULE PO (11:22)
[2023-07-15 12:47] VITALS: BP 176/77; PULSE 70; RESP 20; O2SAT 96
== END 2023-07-15 12:32 | disposition home or self-care (01) ==
PROVIDERS: Emergency Provider Emergency Medicine; PCP Family Medicine
DX: M54.50 Low back pain, unspecified (principal)
CPT/HCPCS: 81003; 99283

== ENCOUNTER → 2023-08-18 16:11 | Outpatient (CLI) | payer MEDICARE, SELFPAY ==
[2021-12-28 16:21] VITALS: BMI 30.9
--- NOTE | 2023-08-18 16:13 | DI.MRI.S_ITS ---
PROCEDURE: MR LUMBAR SPINE WO CON INDICATIONS: Other specified spondylopathies, lumbar region TECHNIQUE: Noncontrast sagittal T1 spin echo and T2 fast echo, sagittal STIR, and T2 fast spin echo through the lumbar spine. In cases with scoliosis, additional coronal T2 fast spin echo may be performed. COMPARISON: [facility], CT, CT ANGIO CHEST ABDOMEN PELVIS, 12/28/2021, 8:15. FINDINGS: Image quality: Excellent. Alignment and Curvature: Lumbarization of S1 open (referred to as L6). Remote posterior lateral seven and pedicle screw fixation at L4-L5 with probable posterior decompressive surgery at L4-L5 and L5-L6. Anterolisthesis of L4 on L5 measures 7 mm. Trace anterolisthesis of L5 on L6 Bone Marrow: Marrow is of normal overall signal. No acute vertebral body compression fractures. Spinal Cord: Conus medullaris terminates at the L1-L2 level. Visualized cord demonstrates normal signal and size. Paraspinous Soft Tissues: No paravertebral masses. T12-L1: Normal appearance. L1-L2: Normal appearance. L2-L3: Normal appearance. L3-L4: Disc bulge. Facet and ligament hypertrophy. Moderate canal stenosis. [id number] right foraminal narrowing. A left foraminal disc bulge or disc protrusion contributes to severe left foraminal narrowing and impingement on the left L3 nerve root in the left foramen. Reference sagittal image 12 of T2 series 3. L4-L5: Fused. No canal stenosis. [id number] right foraminal stenosis. Moderate left foraminal stenosis with minimal flattening deformity on the exiting left L4 nerve root. L5-L6: Facet hypertrophy. No canal stenosis or foraminal stenosis. IMPRESSION: 1. There are 6 non rib-bearing lumbar type vertebral bodies. The lowest vertebra is felt to be a lumbarized S1 (referred to as L6 close). Previous fusion numbered as occurring at L4-L5. If surgery is planned in this patient, careful correlation for correct surgical level is required. 2. The significant level is the level immediately above the fusion, described in this report as being L3-L4. There is moderate central canal stenosis. There is severe left foraminal stenosis at this level with left foraminal L3 nerve root impingement. Dictated by: Axel Sosa M.D. on 08/19/2023 at 10:23 Approved by: Axel Sosa M.D. on 08/19/2023 at 10:38
== END ==
PROVIDERS: PCP Family Medicine; Referring Provider Family Medicine; Visit Provider Family Medicine
DX: M48.8X6 Other specified spondylopathies, lumbar region (principal); M48.061 Spinal stenosis, lumbar region without neurogenic claudication; Z98.1 Arthrodesis status
CPT/HCPCS: 72148

== ENCOUNTER 2023-09-02 10:20 | Outpatient (CLI) | payer MEDICARE, SELFPAY ==
[2021-12-28 16:21] VITALS: BMI 30.9
[2023-09-02] VITALS (8 sets, daily range): BP systolic 142–180; BP diastolic 70–86; PULSE 69–78; RESP 13–20; TEMP 37.6; O2SAT 97–100
--- NOTE | 2023-09-02 10:22 | DI.RAD.S_ITS ---
PROCEDURE: PAIN L/S TRANSFORAMINAL INJECT INDICATIONS: SPONDYLOSIS COMPARISON: None. FINDINGS: Fluoroscopic spot filming was performed to verify placement of spinal needles at the left L3-4 level(s), as labeled on the films. Appropriate location(s) of the needle tip(s) was confirmed by injection of iodinated contrast. IMPRESSION: Intraoperative fluoroscopy for steroid injection. Dictated by: Cat Bai M.D. on 09/02/2023 at 17:38 Approved by: Cat Bai M.D. on 09/02/2023 at 17:38
[2023-09-02] MEDS: MIDAZOLAM 2 MG/2 ML VIAL IV (11:30)
[2023-09-02] MEDS: BUPIVACAINE 0.25% (PF) VIAL 2 ML INJ (11:36)
[2023-09-02] MEDS: BETAMETHASONE 30 MG/5 ML MDV 6 MG INJ (11:36)
[2023-09-02] MEDS: iopamidoL 15 ML VIAL 3 ML INJ (11:36)
[2023-09-02] MEDS: DEXAMETHASONE 10 MG/ML VIAL INJ (11:37)
--- NOTE | 2023-09-02 11:48 | P.PCN_ITS ---
Date/Time/Diagnoses Date of procedure: 09/02/23 Time of procedure: 11:49 Pre-procedure diagnosis: 1. FORAMINAL STENOSIS WITH LE SYMPTOMS Post-procedure diagnosis: same Procedure Notes Procedure: 1. FLUOROSCOPICALLY GUIDED CONTRAST CONTROLLED TRANSFORAMINAL EPIDURAL STEROID INJECTION - LEFT L3/4 TFESI Indications: Trudy is referred by Dr. Rocha for treatment of Foraminal Stenosis with left LE Symptoms Physician: Raghav Rosales Total Fluoroscopy time (seconds): 15 Total sedation minutes: 14 Complications: none Procedure in detail & Post-procedure care: FINDINGS Foraminal Nerve Root Compression secondary to disc disease and facet hypertrophy DESCRIPTION OF PROCEDURE Following review of allergy and review of potential side effects and complications, including, but not necessarily limited to, infection, allergic reaction, local tissue breakdown, stroke, temporary or permanent nerve injury, paralysis, and possible , the patient indicated that the patient understood and agreed to proceed. An informed consent document was signed by the patient, witnessed by a nurse, and placed in the patient's chart. Additionally, other treatment options including medications, modalities, and physical therapy were reviewed with the patient. After review of previous anaesthesic history and IV conscious sedation the patient was deemed safe to proceed with today?s procedure with IV conscious sedation as ASA class II designation. Safety time-out was performed to confirm patient ID, procedure to be performed and site of procedure. IV sedation was accomplished with a combination of 2mg of Versed was administered by the RN after DO order, titrated to patient comfort during the course of the procedure while the patient remained responsive to all verbal commands In the prone position following sterile prep and drape of the lumbar region, the left L3/4 posterior neuroforamen was identified fluoroscopically. The skin was anesthetized via a 25-gauge 1.5-inch needle with 1% lidocaine solution. At this point, a 25-gauge 3.5-inch spinal needle was atraumatically introduced and advanced under fluoroscopic guidance through the posterior left L3/4 neuroforamen to approximately the anterior aspect of the canal. Depth was confirmed on lateral view. Following negative aspiration, injection of approximately 1.5 cc of Isovue 200 under live fluoroscopy in the AP view confi rmed excellent flow along the nerve root, into the epidural space without vascular or intrathecal uptake observed Radiological data, including multiple fluoroscopic views of the lumbosacral spine, reveal a spinal needle at the left L3/4 posterior neuroforamen. Subsequent views show flow of contrast material flowing superiorly and inferiorly along the nerve root confirming epidural flow. Subsequently, a test dose of 1.5cc of 1% lidocaine solution was administered and patient was observed for two minutes for signs or symptoms of complications, including abdominal pain, shortness of breath, bilateral upper or lower extremity weakness, nausea and vomiting, prior to steroid injection. At this point, a total of 2cc or 10mg of dexamethasone and 6mg betamethasone was injected without incident. The patient tolerated the procedure well without signs or symptoms of complications prior to transfer to the recovery area continued monitoring without incident. The patient was then transferred to the recovery area where they were observed for an appropriate time after the injection. The patient reported a VAS score of 7 prior to the procedure and a post-procedure VAS of 0. POST OP INSTRUCTIONS The patient was provided a Pain Log to continue to record their response to the target-specific procedure prior to follow-up visit with their referring physician. Additionally, specific post-injection care instructions and a contact number to our office were provided if concerns arise regarding possible complications associated with the procedure are suspected.
== END 2023-09-02 12:01 | disposition home or self-care (01) ==
LOC: RAD 10:20
PROVIDERS: PCP Family Medicine; Referring Provider Physical Medicine & Rehabilitation; Visit Provider Physical Medicine & Rehabilitation
DX: M48.061 Spinal stenosis, lumbar region without neurogenic claudication (principal); M51.16 Intervertebral disc disorders with radiculopathy, lumbar region; M47.26 Other spondylosis with radiculopathy, lumbar region
CPT/HCPCS: 64483; 99152; J0702; J1100; J2250; J3490

== ENCOUNTER → 2023-09-08 10:55 | Outpatient (CLI) | payer MEDICARE, SELFPAY ==
[2021-12-28 16:21] VITALS: BMI 30.9
--- NOTE | 2023-09-08 | DI.MG.S_ITS ---
BILATERAL DIGITAL SCREENING MAMMOGRAM 3D/2D WITH CAD WITH AUGMENTATION: 09/08/2023 CLINICAL: Routine screening. Comparison is made to exams dated: 09/04/2022 mammogram - [facility], 11/23/2018 mammogram, and 04/30/2018 mammogram - outside. Both breasts are heterogeneously dense, which may obscure small masses (category c / 51-75% glandular tissue). Current study was also evaluated with a Computer Aided Detection (CAD) system. Bilateral breast implants are stable. No significant masses, calcifications, or other findings are seen in either breast. IMPRESSION: BENIGN There is no mammographic evidence of malignancy. A 1 year screening mammogram is recommended. Based on the Tyrer Cuzick model (a risk assessment model) the patient's lifetime risk is 5.0% and her 10 year risk is 0.0%. According to the ACR, ACS, and NCCN guidelines, an annual breast MRI exam along with mammogram is recommended if the patient's lifetime risk is 20% or greater. This exam was interpreted at Station ID: [id number]. NOTE: For mammograms, a report in lay terms will be sent to the patient. Approximately 15% of breast malignancies will not be visualized mammographically. In the management of a palpable breast mass, a negative mammogram must not discourage biopsy of a clinically suspicious lesion. Electronically Signed By: Margret Cantrell M.D., PH.D jeremiah/maxi:09/08/2023 19:41:24 letter sent: Normal Exam ACR BI-RADS Category 2: Benign Finding(s) [id number]
== END ==
PROVIDERS: PCP Family Medicine; Referring Provider Family Medicine; Visit Provider Family Medicine
DX: Z12.31 Encounter for screening mammogram for malignant neoplasm of breast (principal)
CPT/HCPCS: 77063; 77067

== ENCOUNTER → 2023-09-23 10:41 | Outpatient (CLI) | payer MEDICARE, SELFPAY ==
[2021-12-28 16:21] VITALS: BMI 30.9
--- NOTE | 2023-09-23 | DI.RAD.S_ITS ---
Bone Density Report Name: LUCIANA SANTANA Age: 78 Sex: Female Ethnicity: White Date of : 1945 Indication: postmenopausal; screening for osteoporosis; Referring Provider: MIREYA OCHOA Study: Bone densitometry was performed. Exam Date: September 23, 2023 Accession number: [id number] Bone Density: Region BMD T-score Z-score Classification AP Spine(L1, L2, L3) 1.046 0.3 2.7 Normal Femoral Neck (Left) 0.771 -0.7 1.5 Normal Total Hip (Left) 0.857 -0.7 1.2 Normal Femoral Neck (Right) 0.741 -1.0 1.2 Normal Total Hip (Right) 0.885 -0.5 1.5 Normal Total Hip Mean 0.871 -0.6 1.4 Normal World Health Organization criteria for BMD impression classify patients as: Normal (T-score at or above -1.0), Osteopenia (T-score between -1.0 and -2.5), or Osteoporosis (T-score at or below -2.5). 10-year Fracture Risk: FRAX not reported because: All T-scores for Spine Total, Hip Total, Femoral Neck at or above -1.0 Impression: The patient has normal bone mass. Discussion: BONE DENSITY IS ABOVE THE MINIMUM DESIRABLE LEVEL AT ALL SKELETAL SITES TESTED. This patient's bone mineral density is above the minimum desirable level (T-score -1.0 or better) at all sites measured. The patient should follow a healthful lifestyle (good nutrition with adequate calcium and vitamin D, and appropriate weight-bearing exercise). Follow-Up: Consider repeating this study in 5 years or sooner if there is some new clinical indication. Reported by: LOLA DAVISON M.D. on 09/23/2023 11:04:00 AM.
== END ==
PROVIDERS: PCP Family Medicine; Referring Provider Family Medicine; Visit Provider Family Medicine
DX: Z78.0 Asymptomatic menopausal state (principal)
CPT/HCPCS: 77080

== ENCOUNTER → 2023-10-15 16:21 | Outpatient (CLI) | payer MEDICARE, SELFPAY ==
[2021-12-28 16:21] VITALS: BMI 30.9
--- NOTE | 2023-10-15 | DI.MRI.S_ITS ---
PROCEDURE: MR CERVICAL SPINE WO CON INDICATIONS: spinal stenosis, cervical region TECHNIQUE: Noncontrast sagittal T1 spin echo and T2 fast spin echo, sagittal STIR, foraminal oblique sagittal T2 fast spin echo, and axial gradient echo or T2 fast spin echo through the cervical spine. COMPARISON: None. FINDINGS: Image quality: Excellent. Alignment and Curvature: Trace anterolisthesis of C3 on C4 and C4 on C5. Trace retrolisthesis of C5 on C6. Trace anterolisthesis of C6 on C7 and C7 on T1. Bone Marrow: Marrow demonstrates normal overall signal. Spinal Cord: Visualized spinal cord has normal size and signal. No cerebellar tonsillar herniation. Paraspinous Soft Tissues: No paravertebral masses. Prevertebral soft tissues are normal in thickness. C2-C3: No canal stenosis or foraminal stenosis. C3-C4: Disc bulge. Trace anterolisthesis of C3 on C4. Bilateral facet hypertrophy. No canal stenosis. Left uncovertebral joint hypertrophy. Right foramen is patent. Moderate to severe left foraminal narrowing with mild impingement on the exiting left C4 nerve root. C4-C5: Trace anterolisthesis of C4 on C5. Prominent left facet hypertrophy. No central canal stenosis. Right foramen is patent. Moderate to severe left foraminal narrowing with a degree of left foraminal C5 nerve root impingement. C5-C6: Chronic disc height loss. Diffuse posterior disc post osteophyte. Indentation on the cord. Severe canal stenosis. AP diameter of the central canal is 7.7 mm. Bilateral uncovertebral joint hypertrophy and facet hypertrophy. There is moderate to severe right foraminal narrowing and severe left foraminal narrowing with bilateral foraminal C6 nerve root impingement. C6-C7: Severe chronic disc height loss. Diffuse posterior disc post osteophyte with superimposed right paracentral disc protrusion indenting on the cord. AP diameter of the central canal is 8.4 mm. There is more severe canal stenosis to the left of midline. There is bilateral uncovertebral joint hypertrophy, as well as facet hypertrophy. There is moderate to severe right foraminal narrowing with severe left foraminal narrowing and bilateral foraminal C7 nerve root impingement. C7-T1: Severe chronic disc height loss. Posterior disc post osteophyte flattening the cord. AP diameter of the central canal is 8.9 mm. There is mild right foraminal narrowing. There is marked left foraminal narrowing with left foraminal C8 nerve root obliteration. IMPRESSION: 1. There is extensive diffuse cervical spondylitic change. 2. Canal stenosis is severe at C5-C6. It is moderate to severe in the central canal at C6-C7 and severe to the left of midline at C6-C7. It is [id number] at C7-T1. 3. Significant multilevel foraminal narrowing as described above with multilevel nerve root impingement present. Findings include moderate to severe left foraminal narrowing at C3-C4, moderate to severe left foraminal narrowing at C4-C5, moderate to severe right foraminal narrowing and severe left foraminal narrowing at C5-C6, moderate to severe right foraminal narrowing and severe left foraminal narrowing at C6-C7, as well as marked left foraminal narrowing at C7-T1. Dictated by: Axel Sosa M.D. on 10/15/2023 at 19:32 Approved by: Axel Sosa M.D. on 10/15/2023 at 19:46
== END ==
PROVIDERS: PCP Family Medicine; Referring Provider Neurological Surgery; Visit Provider Neurological Surgery
DX: M48.02 Spinal stenosis, cervical region (principal); M47.812 Spondylosis without myelopathy or radiculopathy, cervical region
CPT/HCPCS: 72141

== ENCOUNTER 2024-01-01 08:47 | Outpatient (CLI) | payer MEDICARE, SELFPAY ==
[2021-12-28 16:21] VITALS: BMI 30.9
[2024-01-01] VITALS (7 sets, daily range): BP systolic 140–152; BP diastolic 67–83; PULSE 66–77; RESP 15–20; TEMP 36.7; O2SAT 96–97
--- NOTE | 2024-01-01 09:15 | DI.RAD.S_ITS ---
PROCEDURE: PAIN C/T INTERLAMINAR INJECT INDICATIONS: CERVICAL STENOSIS COMPARISON: None. FINDINGS: Fluoroscopic spot filming was performed to verify placement of spinal needles at the C6-C7 level(s), as labeled on the films. Appropriate location(s) of the needle tip(s) was confirmed by injection of iodinated contrast. IMPRESSION: Intraoperative images at C6-C7. Dictated by: Marc Campos M.D. on 01/01/2024 at 11:10 Approved by: Marc Campos M.D. on 01/01/2024 at 11:11
[2024-01-01] MEDS: MIDAZOLAM 2 MG/2 ML VIAL IV (09:31)
[2024-01-01] MEDS: iopamidoL 15 ML VIAL 3 ML INJ (09:35)
[2024-01-01] MEDS: BUPIVACAINE 0.25% (PF) VIAL 2 ML INJ (09:35)
[2024-01-01] MEDS: DEXAMETHASONE 10 MG/ML VIAL 20 MG INJ (09:36)
--- NOTE | 2024-01-01 09:54 | P.PCN_ITS ---
Date/Time/Diagnoses Date of procedure: 01/01/24 Time of procedure: 09:54 Pre-procedure diagnosis: 1. CERVICAL STENOSIS, 2. CERVICAL HNP WITH UPPER EXTREMITY RADICULAR FEATURES Post-procedure diagnosis: same Procedure Notes Procedure: 1. FLUORSCOPICALLY GUIDED CONTRAST CONTROLLED INTERLAMINAR EPIDURAL STEROID INJECTION - C6/7 TL JULIAN Indications: Trudy is referred by Dr. Rocha for treatment of Cervical HNP with Upper Extremity Paresthesias. Physician: Raghav Rosales Total Fluoroscopy time (seconds): 33 Total sedation minutes: 17 Complications: none Procedure in detail & Post-procedure care: FINDINGS Cervical Stenosis due to disc deterioration and nerve root irritation and nerve root irritation DESCRIPTION OF PROCEDURE Fluoroscopically guided, contrast-controlled C6/7 translaminar epidural steroid injection with conscious sedation. Following review of allergy and review of potential side effects and complications, including, but not necessarily limited to, infection, allergic reaction, local tissue breakdown, temporary as well as permanent nerve injury, stroke, paralysis, and possible , the patient indicated that patient understood and agreed to proceed. An informed consent document was signed by the patient, witnessed by a nurse, and placed in the patient's chart. Additionally, other treatment options including modalities, medications, and physical therapy were reviewed with the patient. After review of previous anaesthesic history and IV conscious sedation the patient was deemed safe to proceed with today?s procedure with IV conscious cuca tion as ASA class II designation. Safety time-out was performed to confirm patient ID, procedure to be performed and site of procedure. IV sedation was accomplished with a combination of 2mg of Versed administered by the RN after DO order, titrated to patient comfort during the course of the procedure while the patient remained responsive to all verbal commands. In the prone position, following sterile prep and drape of the cervical region, the C6/7 translaminar space was identified fluoroscopically. The skin was anesthetized via a 25-gauge 1.5-inch needle with 1% lidocaine solution. At this point, a 25-gauge, 2.5-inch short bevel spinal needle was atraumatically introduced and advanced under fluoroscopic guidance into epidural space at the C6/7 translaminar space. Depth was confirmed on lateral view. Radiological data, including multiple fluoroscopic views of the cervical spine, reveal a spinal needle at the C6/7 translaminar space. Lateral views then show placement of the needle in the epidural space. Subsequent views show contrast material flowing superiorly and inferiorly in the epidural space. DSA fluoroscopy with live contrast injection, once again, confirmed no vascular or intrathecal uptake. At this point, using loss of resistance technique with saline and air, the epidural space was entered. Following negative aspiration, injection of approximately 1.5 cc of Isovue-200 with live fluoroscopy in the AP view confirmed epidural flow in the epidural space without vascular or intrathecal uptake observed. Subsequently, a test dose of 1 cc of 1% lidocaine solution was injected and patient was observed for two minutes without signs or symptoms of complications, including abdominal pain, shortness of breath, bilateral upper or lower extremity weakness, nausea and vomiting, prior to steroid injection. At this point, 2cc or 20mg of dexamethasone was then injected without incident. The patient tolerated the procedure well without signs or symptoms of com plications prior to being transferred to the recovery area for further monitoring, The patient was then transferred to the recovery area where they were observed for an appropriate period of time after the injection. The patient reported a VAS score of 6 prior to the procedure and a post-procedure VAS of 0. POST OP INSTRUCTIONS The patient was provided a Pain Log to continue to record their response to the target-specific procedure prior to follow-up visit with the referring provider. Additionally, specific post-injection care instructions and a contact number to our office were provided if concerns arise regarding possible complications associated with the procedure are suspected.
== END 2024-01-01 10:15 | disposition home or self-care (01) ==
LOC: RAD 08:48
PROVIDERS: PCP Family Medicine; Referring Provider Physical Medicine & Rehabilitation; Visit Provider Physical Medicine & Rehabilitation
DX: M48.02 Spinal stenosis, cervical region (principal); M50.123 Cervical disc disorder at C6-C7 level with radiculopathy
CPT/HCPCS: 62321; 99152; J1100; J2250; J3490

== ENCOUNTER → 2024-04-09 14:51 | Outpatient (CLI) | payer MEDICARE, SELFPAY ==
[2021-12-28 16:21] VITALS: BMI 30.9
--- NOTE | 2024-04-09 14:52 | DI.ECHO.S_ITS ---
[facility] : : [address] : : [place] : : [id number] : : Phone: [phone] Echocardiogram Report + + :Name: LUCIANA MOYA Study Date: 04/09/2024 Height: 62 in : :[facility] ReadingLocation: Weight: 182 lb : : Gender: Female BSA: 1.8 m2 : :: 1945 Age: 79 yrs BP: 171/93 mmHg: :Reason For Study: MURMUR : :Ordering Physician: DON, : :MIREYA Performed By: Harshad Wall : :Referring: MIREYA OCHOA : + + Interpretation Summary 1. The left ventricular contractility is normal. Estimated ejection fraction is greater than 55% with no segmental wall motion abnormalities. No LVH present. Grade 1 diastolic dysfunction noted. 2. The right ventricular contractility is normal. 3. All cardiac chambers are of normal size. 4. No significant valvular abnormalities are appreciated. 5. No obvious intracardiac shunts noted. 6. No obvious intracardiac masses nor thrombi appreciated. 7. No hemodynamically significant pericardial effusion present. Conclusion: Normal biventricular systolic function with no significant structural abnormalities. When compared with previous echocardiogram, no significant changes have occurred. Procedure: A two-dimensional transthoracic echocardiogram with color flow and Doppler was performed. The study quality was technically adequate. Comparison is made with the echocardiogram of 03/13/2021. The patient was in sinus rhythm with heart rates between 65-73 bpm during the exam. Left Ventricle: The left ventricle is normal in size and wall thickness. The ejection fraction is estimated to be 55-60%. Right Ventricle: The right ventricle is normal size. The right ventricular systolic function is normal. Atria: The left atrial size is normal. Right atrial size is normal. The interatrial septum grossly appears intact with no obvious evidence for an atrial septal defect. Mitral Valve: The mitral valve is normal. There is no mitral valve stenosis. There is no mitral regurgitation noted. Aortic Valve: The aortic valve is trileaflet. There is no aortic valve stenosis. No aortic regurgitation is present. Tricuspid Valve: The tricuspid valve is normal. There is no tricuspid stenosis. No tricuspid regurgitation. Pulmonic Valve: The pulmonic valve is not well visualized. There is no pulmonic valvular stenosis. There is no pulmonic valvular regurgitation. Great Vessels: The aortic root is normal size. The dimensions of the ascending aorta are normal. The IVC is of normal diameter and collapses greater than 50% with a sniff. This suggests a low right atrial pressure of 3 mm Hg. Pericardium/ Pleura There is no pericardial effusion. There is no pleural effusion. MMode/2D Measurements & Calculations LVIDd: 4.4 cm LVOT diam: 2.1 cm LVIDs: 3.3 cm Ao root diam: 3.3 cm FS: 25.5 % asc Aorta Diam: 3.1 cm IVSd: 1.0 cm LVPWd: 1.0 cm LV lopez. diameter/BSA (cm/m^2): 2.4 LV sys. diameter/BSA (cm/m^2): 1.8 LA A2 area: 14.3 cm2 RA long axis: 4.2 cm LA A4 area: 17.4 cm2 RA area: 15.4 cm2 LA length (vol): 5.3 cm RA vol: 47.3 ml LA vol: 40.0 ml RA : 25.8 ml/m2 LA vol index: 21.8 ml/m2 IVC diam: 2.0 cm RVD1 (basal): 3.9 cm RVD2 (mid): 3.5 cm TAPSE: 2.5 cm Doppler Measurements & Calculations Ao V2 max: 110.7 cm/sec LVOT Max Krunal: 94.5 cm/sec Ao V2 mean: 79.0 cm/sec LV V1 max P.6 mmHg Ao max P.9 mmHg LV V1 VTI: 22.0 cm Ao mean P.7 mmHg REEMA(I,D): 3.2 cm2 Ao V2 VTI: 24.1 cm REEMA(V,D): 3.0 cm2 sev ratio: 0.91 REMEA indexed to BSA (cm^2/m^2): 1.7 MV E max krunal: 53.6 cm/sec PA V2 max: 108.6 cm/sec MV A max krunal: 87.7 cm/sec PA V2 mean: 66.5 cm/sec MV E/A: 0.61 PA mean P.1 mmHg Med Peak E' Krunal: 5.1 cm/sec PA pr(Accel): 32.8 mmHg E/E' med: 10.6 Lat Peak E' Krunal: 6.4 cm/sec E/E' lat: 8.3 E/e' average: 9.5 MV dec time: 0.25 sec SV(LVOT): 77.3 ml Reading Physician:
== END ==
PROVIDERS: PCP Family Medicine; Referring Provider Family Medicine; Visit Provider Family Medicine
DX: R01.1 Cardiac murmur, unspecified (principal)
CPT/HCPCS: 93306

== ENCOUNTER → 2025-03-10 15:08 | Outpatient (CLI) | payer MEDICARE, SELFPAY ==
[2021-12-28 16:21] VITALS: BMI 30.9
--- NOTE | 2025-03-10 15:09 | DI.MG.S_ITS ---
MM screening mammo implant BI: 03/10/2025. BI-RADS: 2 CLINICAL: 80-year old female for bilateral screening mammogram. Tyrer-Cuzick lifetime risk of 1.4%. No personal or first-degree family history of breast cancer. History of ovarian cancer in one first-degree relative. The patient has bilateral implants. The patient had a prior left breast biopsy. PRIOR EXAMS 09/08/2023, 09/04/2022, 11/23/2018. MAMMOGRAPHY TECHNIQUE: 2D and 3D (tomosynthesis) digital mammographic views obtained, with additional images as needed for full coverage. Current study was also evaluated with a Computer Aided Detection (CAD) system. DENSITY C. The breasts are heterogeneously dense, which may obscure small masses. IMPLANTS Breast implants present. MAMMOGRAPHY FINDINGS Bilateral: Typically-benign vascular calcifications noted. IMPRESSION: * No evidence of malignancy with benign findings. RECOMMENDATIONS Bilateral * Annual screening mammography. OVERALL ASSESSMENT CATEGORY BI-RADS-2: Benign. The [employer] recommends annual screening mammography beginning at age 40 for women with average risk of breast cancer. ELECTRONICALLY SIGNED: Josr Sewell M.D. on 03/11/2025 at 07:47:31 AM PT Interpreting Station ID: [id number]
== END ==
PROVIDERS: PCP Family Medicine; Referring Provider Family Medicine; Visit Provider Family Medicine
DX: Z12.31 Encounter for screening mammogram for malignant neoplasm of breast (principal); R92.333 Mammographic heterogeneous density, bilateral breasts; R92.1 Mammographic calcification found on diagnostic imaging of breast; Z80.41 Family history of malignant neoplasm of ovary; Z98.82 Breast implant status
CPT/HCPCS: 77063; 77067

== ENCOUNTER → 2025-09-02 11:47 | Outpatient (CLI) | payer MEDICARE, SELFPAY ==
[2021-12-28 16:21] VITALS: BMI 30.9
[2025-09-02 12:44] LABS: Influenza A - CEPHEID Flu A POSITIVE (NEGATIVE); Influenza B - CEPHEID Flu B NEGATIVE (NEGATIVE)
[2025-09-02 12:55] LABS: COVID-19 CEPHEID 4-PLEX PCR Negative (Negative)
== END ==
LOC: LAB 11:48
PROVIDERS: PCP Family Medicine; Visit Provider Chiropractor
DX: R50.9 Fever, unspecified (principal); R05.1 Acute cough
CPT/HCPCS: 87637

== ENCOUNTER → 2025-09-02 12:09 | Outpatient (CLI) | payer MEDICARE, SELFPAY ==
[2021-12-28 16:21] VITALS: BMI 30.9
--- NOTE | 2025-09-02 12:11 | DI.RAD.S_ITS ---
PROCEDURE: XR CHEST 2V
== END ==
PROVIDERS: PCP Family Medicine; Referring Provider Family Medicine; Visit Provider Chiropractor
DX: R05.1 Acute cough (principal); R50.9 Fever, unspecified; Q25.46 Tortuous aortic arch; I70.0 Atherosclerosis of aorta; M47.814 Spondylosis without myelopathy or radiculopathy, thoracic region
CPT/HCPCS: 71046; 87637

== ENCOUNTER 2025-10-21 16:15 | Emergency (ER) | payer MEDICARE, SELFPAY ==
[2021-12-28 16:21] VITALS: BMI 30.9
--- OUTSIDE RECORDS SUMMARY | 2025-10-21 16:18 | XMS_ITS | Encounter Summary ---
Author Organization [facility] Address [address] [place] [address] Phone Care Team Providers Care Mica Paster Name Role Phone Thalia Chavis Primary Care Provider [phone] Encounter Details Date Type Department Care Team (Late st Contact Info) Description 01/13/2012 Office Visit [facility] CROCKER HISTORICAL Provider, Historical 1 scan: LETTER FR PATIENT; ; GUILLERMO CHAIDEZ Social History Tobacco Use Types Packs/Day Years Used Date Smoking Tobacco: Never Assessed Comments Unknown Sex and Gender Information Value Date Recorded Sex Assigned at Not on file Legal Sex Female 9:21 AM PDT Gender Identity Not on file Sexual Orientation Not on file documented as of this encounter Plan of Treatment Not on file documented as of this encounter Visit Diagnoses Not on filedocumented in this encounter Care Teams Mica Paster Relationship Specialty Start Date End Date Thalia Chavis PCP - General 09/30/11 documented as of this encounter
[2025-10-21 16:23] VITALS: BP 172/83; PULSE 83; RESP 18; TEMP 36.8; O2SAT 96; BMI 34.2
--- NOTE | 2025-10-21 16:31 | DI.RAD.S_ITS ---
PROCEDURE: XR HIP W PEL IF DONE RT 2V INDICATIONS: fall with hip pain TECHNIQUE: AP pelvis with lateral view(s) of the right hip(s). COMPARISON: [facility], CR, XR HIP W PEL IF DONE LT 2V, 07/14/2023, 13:41. FINDINGS: Bones: No fractures or dislocations. Pelvic ring appears intact. No suspicious bony lesions. Changes of L4-5 interbody and posterior instrumented fusion. Moderate degenerative arthrosis of both hips. Soft tissues: The visualized bowel gas pattern is normal. No suspicious soft tissue calcifications. IMPRESSION: No acute bony abnormality. Moderate degenerative arthrosis of both hips. Dictated by: Esdras Ley M.D. on 10/21/2025 at 17:05 Approved by: Esdras Ley M.D. on 10/21/2025 at 17:06
--- NOTE | 2025-10-21 19:32 | ED.FALL ---
HPI - Fall General Chief Complaint: Fall Stated Complaint: R hip pain x3 days, fell today, weight on it hurts Time Seen by Provider: 10/21/25 19:17 Source: patient Mode of arrival: Ambulatory Related Data Home Medications ?Medication ?Instructions ?Recorded ?Confirmed albuterol 90 mcg/actuation aerosol 90 mcg inhalation PRN PRN 05/11/21 09/02/25 inhaler Shortness Of Breath bupropion HCl 300 mg 24 hr tablet, 300 mg PO DAILY 05/11/21 09/02/25 extended release cholecalciferol (vitamin D3) 25 25 mcg PO DAILY 05/11/21 09/02/25 mcg (1,000 unit) tablet (Vitamin D3) dicyclomine 10 mg capsule 10 mg PO PRN PRN Abdominal 05/11/21 09/02/25 Discomfort gabapentin 300 mg capsule 300 mg PO TID 05/11/21 09/02/25 telmisartan 80 mg tablet 80 mg PO BEDTIME 05/11/21 09/02/25 doxepin 10 mg capsule 10 mg PO ONCE PM 07/14/23 09/02/25 amlodipine 10 mg tablet 10 mg PO DAILY 08/28/23 09/02/25 omeprazole 20 mg capsule,delayed 20 mg PO DAILY 12/01/23 09/02/25 release buspirone 5 mg tablet mg PO 09/02/25 09/02/25 Previous Rx's ?Medication ?Instructions ?Recorded hyoscyamine sulfate 0.125 mg tablet 0.125 mg PO BID-QID PRN dyspepsia 05/28/22 #20 tabs diazepam 5 mg tablet 5 mg PO .COMPLEX #5 tabs 05/31/24 benzonatate 200 mg capsule 200 mg PO BID-TID PRN cough #15 09/02/25 caps Allergies Allergy/AdvReac Type Severity Reaction Status Date / Time Penicillins Allergy Severe Rash Verified 10/21/25 16:24 Sulfa (Sulfonamide Allergy Severe Rash Verified 10/21/25 16:24 Antibiotics) Patient History Medical History Bilateral occipital neuralgia Cervical stenosis of spinal canal Cervical radiculopathy Herniated nucleus pulposus, L3-4 left Pancreatitis Surgical History S/P lumbar spinal fusion History of hysterectomy Social History household members: none Smoking Status: Never smoker alcohol intake: former Smoking Status: Never smoker alcohol intake frequency: holidays/special occasions only Exam Initial Vital Signs Initial Vital Signs: Vital Signs Temperature 98.3 F 10/21/25 16:23 Pulse Rate 83 10/21/25 16:23 Respiratory Rate 18 10/21/25 16:23 Blood Pressure 172/83 H 10/21/25 16:23 Pulse Oximetry 96 10/21/25 16:23 Oxygen Delivery Method Room Air 10/21/25 16:23 Course Orders Ordered: ED Orders 10/21/25 16:31 XR hip w pel RT 2V Stat Vital Signs Vital signs: Vital Signs - 8 hr 10/21/25 16:23 Temperature 98.3 F Pulse Rate 83 Respiratory Rate 18 Blood Pressure 172/83 H Pulse Oximetry 96 Oxygen Delivery Method Room Air Discharge Plan Departure Patient Disposition: Left Without Being Seen Clinical Impression: Patient left without being seen Prescriptions: No Action buspirone 5 mg tablet PO benzonatate 200 mg capsule 200 mg PO BID-TID PRN (Reason: cough) Qty: 15 0RF doxepin 10 mg capsule 10 mg PO ONCE PM telmisartan 80 mg tablet 80 mg PO BEDTIME Patient Comments: Take 1 by mouth daily gabapentin 300 mg capsule 300 mg PO TID Patient Comments: Take one capsule 3 times a day, for chronic pain Rx Instructions: can take up to 3 pills daily, typically takes as 2 at night and 1 during day. albuterol 90 mcg/actuation Aerosol 90 mcg INHALATION PRN PRN (Reason: Shortness Of Breath) dicyclomine 10 mg capsule 10 mg PO PRN PRN (Reason: Abdominal Discomfort) Patient Comments: Take one tablet every 8 hours, as needed for abdominal cramps. bupropion HCl 300 mg tablet extended release 24 hr 300 mg PO DAILY cholecalciferol (vitamin D3) [Vitamin D3] 25 mcg (1,000 unit) tablet 25 mcg PO DAILY Patient Comments: Take one by mouth twice a day hyoscyamine sulfate 0.125 mg tablet 0.125 mg PO BID-QID PRN (Reason: dyspepsia) Qty: 20 0RF amlodipine 10 mg tablet 10 mg PO DAILY omeprazole 20 mg capsule,delayed release(DR/EC) 20 mg PO DAILY diazepam 5 mg tablet 5 mg PO .COMPLEX MDD 3 tabs Qty: 5 0RF Rx Instructions: 5 mg orally 1 to 2 tabs 1hr prior to spinal procedure. May take an additional tab if steroid flare experienced the night after the procedure.;
== END 2025-10-21 19:17 | disposition left against medical advice (07) ==
PROVIDERS: Emergency Provider Family Medicine; PCP Family Medicine
DX: M16.0 Bilateral primary osteoarthritis of hip (principal); Z53.21 Procedure and treatment not carried out due to patient leaving prior to being seen by health care provider
CPT/HCPCS: 73502; 99281; 99283